=== PATIENT | male | born 1975 | race Caucasian/White ===

== ENCOUNTER 2016-10-24 11:39 | Emergency (ER) | payer BC ==
[~2016-10-24] VITALS: Ht 198.1 cm; Wt 90.0 kg
[~2016-10-24 11:39] MED LIST: ALPR0.5T3 PO; BUPR100T4 PO; EXTR500C PO; FERR325T PO; VITA50TA PO
[2016-10-24 11:45] VITALS: BP 143/74; PULSE 84; RESP 16; TEMP 98.2; O2SAT 98
--- NOTE | 2016-10-24 11:47 | PD ---
Physical Exam Date Seen by Provider: October 24, 2016 Time Seen by Provider: 11:45 Narrative 41 y/o male here with injury to Right lower lateral rib cage while wrestling with a friend 4 days ago. Patient having 9/10 pain and pain with deep breaths and movements. Pain is feeling worse despite tylenol. No fever or chills. No SOB. V/S Stable Awaiting Bed Placement. [facility] Medical Record Reviewed: Yes Supervised Visit with PAULA: Yes Condition: Stable Jonathan Ruiz October 24, 2016 11:47
--- NOTE | 2016-10-24 12:20 | PD ---
HPI Chief Complaint: Fall Travel History International Travel<30 days: Yes Contact w/Intl Traveler<30days: Yes Name of Country Traveled to: [place] Traveled to known affect area: No History of Present Illness HPI 41-year-old male presents to the emergency department with right upper quadrant pain and right rib pain for 4 days. Patient reports he was wrestling with his friend when he fell backwards onto the ground and his friend landed onto his abdomen. He reports the right upper quadrant pain has become increasingly more painful and associated with nausea no vomiting. PFSH Past Medical History Anemia: Yes Arthritis: Yes Depression: Yes Heart Rhythm Problems: Yes (LOWER) Cardiovascular Problems: Yes (ABLATION 2008) Gastrointestinal Disorders: Yes (GASTRIC BYPASS, HX ULCERS) Musculoskeletal: Yes (SHOULDER, ARTHRITIS, NECK AND BACK) Neurologic: Yes (HEAD INJURY, BUT CT SCAN NEG PER PT) Pancreatitis: Yes Ulcer: Yes Past Surgical History Abdominal Surgery: Yes (Gastric bypass) AICD: No Body Medical Devices: HARDWARE IN NECK, LOWER AND RIGHT SHOULDER Cardiac Surgery: Yes (Ablation for SVT) Cholecystectomy: Yes Genitourinary Surgery: No Gynecologic Surgery: No Joint Replacement: No Neurologic Surgery: No Oral Surgery: No Pacemaker: No Thoracic Surgery: No Tonsillectomy: Yes Other Surgery: Yes (gastric bypass) Social History Alcohol Use: Yes (Socially) Tobacco Use: Yes (1 pack per 3 days) Substance Use: No Allergies-Medications (Allergen,Severity, Reaction): Coded Allergies: Nonsteroidal Anti-Inflammatory Agts (Verified Allergy, Severe, GASTRIC ULCERS, 08/03/16) Nubain (Verified Allergy, Severe, ITCHING, 08/03/16) *MDRO Multi-Drug Resistant Organism (Verified Adverse Reaction, Unknown, ) 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; (shoulder) - 01/02/16,01/27/16 & 03/04/16 Reported Meds & Prescriptions Reported Meds & Active Scripts Active Alprazolam 0.5 Mg Tab 0.5 Mg PO BID PRN Acetaminophen Extra Strength (Acetaminophen) 500 Mg Cap 1,000 Mg PO Q6H PRN Bupropion HCl 100 Mg Tab 100 Mg PO BID Increase to TID after 3 days Ferrous Sulfate 325 Mg Tab 325 Mg PO DAILY Reported Vitamin B-1 (Thiamine HCl) 50 Mg Tab 50 Mg PO DAILY Review of Systems Except as stated in HPI: all other systems reviewed are Neg Gastrointestinal: Positive: Nausea, Abdominal Pain Physical Exam Narrative GENERAL: Well-nourished, well-developed patient. Patient appears uncomfortable , holding right side of abdomen. SKIN: Focused skin assessment warm/dry. HEAD: Normocephalic. EYES: No scleral icterus. No injection or drainage. NECK: Supple, trachea midline. No JVD or lymphadenopathy. CARDIOVASCULAR: Regular rate and rhythm without murmurs, gallops, or rubs. RESPIRATORY: Breath sounds equal bilaterally. No accessory muscle use. Right anterior ribs tender to palpation. No crepitus or palpable fx. GASTROINTESTINAL: Abdomen soft, nondistended, acutely tender to palpation in RUQ. MUSCULOSKELETAL: No cyanosis, or edema. BACK: Nontender without obvious deformity. No CVA tenderness. Data Data Last Documented VS Vital Signs Date Time Temp Pulse Resp B/P Pulse Ox O2 Delivery O2 Flow Rate FiO2 10/24/16 11:45 98.2 84 16 143/74 98 MDM Condition: Stable Vanesa Okeefe October 24, 2016 12:20
[2016-10-24] MEDS ORDERED: SODIUM CHLOR 0.9% 1000 ML INJ 1,000 ML IV ONE (12:45)
[2016-10-24] MEDS ORDERED: HYDROmorphone HCL PF 1 MG/ML VIAL IVS ONE (12:45)
--- NOTE | 2016-10-24 14:04 | PD ---
HPI Chief Complaint: Fall Time Seen by Provider: 12:32 Travel History International Travel<30 days: Yes Contact w/Intl Traveler<30days: Yes Name of Country Traveled to: [place] Traveled to known affect area: No History of Present Illness HPI Is a 41-year-old man who presents emergency department when of right flank right upper quadrant abdominal pain. He states presents with 3 days ago he was horsing around and he fell to ground one of his buddies fell with her knee onto his right flank. Since that time he said worsening right flank pain and right upper quadrant abdominal pain. It is worse with deep breathing. He has some shortness of breath with it. He's had multiple muscular skeletal surgeries in the past and is on chronic opiates. He otherwise had been feeling well. 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 SKIN: Focused skin assessment warm/dry. HEAD: Atraumatic. Normocephalic. CARDIOVASCULAR: Regular rate and rhythm. No murmur appreciated. RESPIRATORY: No accessory muscle use. Clear to auscultation. Breath sounds equal bilaterally. GASTROINTESTINAL: Abdomen soft. There is redundant skin post bypass. He has significant right upper quadrant tenderness. He is a little bit of right lower quadrant tenderness as well. No peritonitis. MUSCULOSKELETAL: No obvious deformities. Is significant right flank tenderness right costal margin tenderness. Data Data Last Documented VS Vital Signs Date Time Temp Pulse Resp B/P Pulse Ox O2 Delivery O2 Flow Rate FiO2 10/24/16 14:53 72 16 121/63 96 Room Air 10/24/16 11:45 98.2 Orders Chest, Single Ap (10/24/16 ) Ct Abd/Pel W Iv Contrast(Rout) (10/24/16 ) Iv Access Insert/Monitor (10/24/16 12:41) Sodium Chlor 0.9% 1000 Ml Inj (Ns 1000 M (10/24/16 12:45) Hydromorphone Pf Inj (Dilaudid Pf Inj) (10/24/16 12:45) Iohexol 350 Inj (Omnipaque 350 Inj) (10/24/16 14:30) MDM Medical Decision Making Medical Screen Exam Complete: Yes Emergency Medical Condition: Yes Interpretation(s) Chest x-ray negative CT abdomen and pelvis: Negative Differential Diagnosis Rib fracture, pneumothorax, liver injury, other Narrative Course Medical decision making This a 41-year-old man who presents to the emergency department with right upper quadrant abdominal pain after taking a really hard need to the right costal margin. He likely has rib fractures. He has more right upper quadrant abdominal pain than expected for this including right lower quadrant abdominal pain as well. We'll check CT to ensure no liver injury. Outpatient follow-up. Diagnosis Primary Impression: Chest wall contusion Additional Instructions: Follow-up with her primary doctor if not well in the next 3-5 days. Return to the emergency department for any new or worsening symptoms. Med/Other Pt SpecificInfo: No Change to Meds Disposition: 01 DISCHARGE HOME Condition: Stable Jarrett Johansen MD October 24, 2016 14:04
--- NOTE | 2016-10-24 14:19 | RADRPT ---
EXAM DATE/TIME: 10/24/2016 12:43 [facility] COMPARISON: CHEST SINGLE AP, May 31, 2016, 6:39. INDICATIONS : Fell this morning and injured right lower chest and ribs, short of breath MEDICAL HISTORY : fractured clavicle SURGICAL HISTORY : cervical fusion, ORIF right clavicle, removal of hardware right clavicle ENCOUNTER: Initial ACUITY: 1 day PAIN SCORE: 8/10 LOCATION: Right chest FINDINGS: Portable AP view of the chest demonstrates a normal-sized cardiac silhouette. No effusion, consolidat ion, or pneumothorax is visualized. The bones and soft tissues demonstrate no acute abnormality. CONCLUSION: No acute cardiopulmonary abnormality is identified. Harry Jolly MD on October 24, 2016 at 14:17 Board Certified Radiologist. This report was verified electronically.
[2016-10-24] MEDS ORDERED: IOHEXOL 350 MG/ML 10 ML VIAL (for RAD DIAG) IV ONE (14:30)
--- NOTE | 2016-10-24 14:51 | RADRPT ---
EXAM DATE/TIME: 10/24/2016 14:21 [facility] COMPARISON: No previous studies available for comparison. INDICATIONS : Fall now having right rib pain on inspiration. IV CONTRAST: 96 cc Omnipaque 350 (iohexol) IV ORAL CONTRAST: No oral contrast ingested. RADIATION DOSE: 8.46 CTDIvol (mGy) MEDICAL HISTORY : Cardiovascular disease. Pancreatitis. SURGICAL HISTORY : Gastric bypass. Cholecystectomy. ENCOUNTER: Initial ACUITY: 4 - 6 days PAIN SCALE: 9/10 LOCATION: Right Abdomen TECHNIQUE: Volumetric scanning of the abdomen and pelvis was performed. Using automated exposure control and ad justment of the mA and/or kV according to patient size, radiation dose was kept as low as reasonably achievable to obtain optimal diagnostic quality images. FINDINGS: LOWER LUNGS: The visualized lower lungs are clear. LIVER: Homogeneous density without lesion. There is no dilation of the biliary tree. Status post cholecyste ctomy. SPLEEN: Normal size without lesion. PANCREAS: Within normal limits. KIDNEYS: Normal in size and shape. There is no mass, stone or hydronephrosis. ADRENAL GLANDS: Within normal limits. VASCULAR: There is no aortic aneurysm. BOWEL/MESENTERY: Postsurgical changes are noted involving the stomach with multiple surgical clips and anette. There are several loops of nondilated air-containing small bowel with several small air-fluid levels. There is no free intraperitoneal air or fluid. No oral contrast was given limiting the sensitivity of the exam. ABDOMINAL WALL: Within normal limits. RETROPERITONEUM: There is no lymphadenopathy. BLADDER: No wall thickening or mass. REPRODUCTIVE: Within normal limits. INGUINAL: There is no lymphadenopathy or hernia. MUSCULOSKELETAL: Within normal limits for patient age. CONCLUSION: 1. Negative acute trauma study with no evidence of visceral injury. The lung bases are clear. 2. Status post cholecystectomy. 3. Postsurgical changes status post gastric surgery. There is a mildly nonspecific, nonobstructive b owel gas pattern. Sunny Cody MD on October 24, 2016 at 14:47 Board Certified Radiologist. This report was verified electronically.
[2016-10-24 14:53] VITALS: BP 121/63; PULSE 72; RESP 16; O2SAT 96
[2016-10-25] MEDS ORDERED: TEMA7.5C9 PO (15:42)
[2016-10-26] MEDS ORDERED: TEMA7.5C9 PO (11:50)
[2016-11-28] MEDS ORDERED: TEMA7.5C9 PO (11:20)
[2016-11-28] MEDS ORDERED: BUPR100T4 PO (11:20)
[2016-11-28] MEDS ORDERED: TEMA7.5C PO (11:21)
== END 2016-10-24 15:48 | disposition home or self-care (01) ==
LOC: NEPD 11:39
DX: S20.211A Contusion of right front wall of thorax, initial encounter (principal); R11.0 Nausea; W03.XXXA Other fall on same level due to collision with another person, initial encounter; Y93.83 Activity, rough housing and horseplay; Z72.0 Tobacco use; Z86.2 Personal history of diseases of the blood and blood-forming organs and certain disorders involving the immune mechanism; Z87.39 Personal history of other diseases of the musculoskeletal system and connective tissue; Z86.59 Personal history of other mental and behavioral disorders; Z86.79 Personal history of other diseases of the circulatory system; Z87.19 Personal history of other diseases of the digestive system; Z86.69 Personal history of other diseases of the nervous system and sense organs
CPT/HCPCS: 71010; 74177; 96360; 96361; 99285; J1170; J7030; Q9967

== ENCOUNTER 2017-02-01 03:54 | Emergency (ER) | payer BC ==
[~2017-02-01] VITALS: Ht 198.1 cm; Wt 90.5 kg
[~2017-02-01 03:54] MED LIST changes: -ALPR0.5T3 PO; -EXTR500C PO; +HYDR-3534 PO; +TEMA7.5C PO
[2017-02-01 03:56] VITALS: BP 147/79; PULSE 71; RESP 15; TEMP 98; O2SAT 100
[2017-02-01] MEDS ORDERED: TEMA7.5C9 PO (04:12)
[2017-02-01] MEDS ORDERED: SODIUM CHLORIDE 0.9% FLUSH 10 ML FLUSH IV FLUSH PRN (04:30)
[2017-02-01] MEDS ORDERED: MORPHINE SULFATE 4 MG/ML INJ IV PUSH ONE ×2 (04:30→06:15)
[2017-02-01] MEDS ORDERED: SODIUM CHLOR 0.9% 1000 ML INJ 1,000 ML IV ONE (04:45)
[2017-02-01] MEDS ORDERED: ONDANSETRON HCL 4 MG/2 ML VIAL IV PUSH ONE (04:45)
--- NOTE | 2017-02-01 04:45 | PD ---
HPI Chief Complaint: Flank/Kidney Pain Time Seen by Provider: 04:15 Travel History International Travel<30 days: No Contact w/Intl Traveler<30days: No Traveled to known affect area: No History of Present Illness HPI 41yo M with PMH of nephrolithiasis, chronic back pain, obesity s/p gastric bypass presents to the ED with c/o right flank pain for 3 days. States it radiates from right flank to right back. Associated with nausea, dysuria. Pain is intermittent. Denies any fever, chest pain, sob, vomiting, hematuria, testicular pain, penile discharge. PFSH Past Medical History Anemia: Yes Arthritis: Yes Depression: Yes Heart Rhythm Problems: Yes (LOWER) Cardiovascular Problems: Yes (Ablation 2009) Diminished Hearing: No Gastrointestinal Disorders: Yes (GASTRIC BYPASS, HX ULCERS) Musculoskeletal: Yes (SHOULDER, ARTHRITIS, NECK AND BACK) Neurologic: Yes (HEAD INJURY, BUT CT SCAN NEG PER PT) Pancreatitis: Yes Ulcer: Yes Tetanus Vaccination: < 5 Years Influenza Vaccination: Yes Past Surgical History Abdominal Surgery: Yes (Gastric bypass) AICD: No Body Medical Devices: HARDWARE IN NECK, LOWER AND RIGHT SHOULDER Cardiac Surgery: Yes (Ablation for SVT) Cholecystectomy: Yes Genitourinary Surgery: No Gynecologic Surgery: No Joint Replacement: No Neurologic Surgery: No Oral Surgery: No Pacemaker: No Thoracic Surgery: No Tonsillectomy: Yes Other Surgery: Yes (gastric bypass) Social History Alcohol Use: Yes (once a week) Tobacco Use: Yes (1 PPD) Substance Use: No Allergies-Medications (Allergen,Severity, Reaction): Coded Allergies: diclofenac (Unverified Allergy, Severe, GASTRIC ULCERS, 01/17/17) etodolac (Unverified Allergy, Severe, GASTRIC ULCERS, 01/17/17) flurbiprofen (Unverified Allergy, Severe, GASTRIC ULCERS, 01/17/17) ibuprofen (Unverified Allergy, Severe, GASTRIC ULCERS, 01/17/17) indomethacin (Unverified Allergy, Severe, GASTRIC ULCERS, 01/17/17) ketoprofen (Unverified Allergy, Severe, GASTRIC ULCERS, 01/17/17) ketorolac (Unverified Allergy, Severe, GASTRIC ULCERS, 01/17/17) nalbuphine (Unverified Allergy, Severe, ITCHING, 01/17/17) naproxen (Unverified Allergy, Severe, GASTRIC ULCERS, 01/17/17) oxaprozin (Unverified Allergy, Severe, GASTRIC ULCERS, 01/17/17) *MDRO Multi-Drug Resistant Organism (Verified Adverse Reaction, Unknown, ) 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 SKIN: Focused skin assessment warm/dry. HEAD: Atraumatic. Normocephalic. EYES: Pupils equal and round. No scleral icterus. No injection or drainage. ENT: No nasal bleeding or discharge. Mucous membranes pink and moist. NECK: Trachea midline. No JVD. CARDIOVASCULAR: Regular rate and rhythm. No murmur appreciated. RESPIRATORY: No accessory muscle use. Clear to auscultation. Breath sounds equal bilaterally. GASTROINTESTINAL: Abdomen soft, +TTP RUQ, right flank. No rebound tenderness or guarding. BACK: +Right CVA ttp. MUSCULOSKELETAL: No obvious deformities. No clubbing. No cyanosis. No edema. NEUROLOGICAL: Awake and alert. No obvious cranial nerve deficits. Motor grossly within normal limits. Normal speech. PSYCHIATRIC: Appropriate mood and affect; insight and judgment normal. Data Data Last Documented VS Vital Signs Date Time Temp Pulse Resp B/P (MAP) Pulse Ox O2 Delivery O2 Flow Rate FiO2 02/01/17 05:46 16 02/01/17 04:59 50 124/78 (93) 100 Room Air 02/01/17 03:56 98.0 Orders Orders Complete Blood Count With Diff (02/01/17 04:30) Comprehensive Metabolic Panel (02/01/17 04:30) Lipase (02/01/17 04:30) Urinalysis - C+S If Indicated (02/01/17 04:30) Ct Abd/Pel W/O Iv Contrast (02/01/17 04:30) Iv Access Insert/Monitor (02/01/17 04:30) Ecg Monitoring (02/01/17 04:30) Oximetry (02/01/17 04:30) Sodium Chloride 0.9% Flush (Ns Flush) (02/01/17 04:30) Morphine Inj (Morphine Inj) (02/01/17 04:30) Ondansetron Inj (Zofran Inj) (02/01/17 04:45) Sodium Chlor 0.9% 1000 Ml Inj (Ns 1000 M (02/01/17 04:45) Morphine Inj (Morphine Inj) (02/01/17 06:15) Labs Laboratory Tests Test 02/01/17 04:40 02/01/17 04:51 Urine Color YELLOW Urine Turbidity CLEAR Urine pH 6.0 Urine Specific [place] 1.022 Urine Protein TRACE mg/dL Urine Glucose (UA) NEG mg/dL Urine Ketones NEG mg/dL Urine Occult Blood NEG Urine Nitrite NEG Urine Bilirubin NEG Urine Urobilinogen LESS THAN 2.0 MG/DL Urine Leukocyte Esterase TRACE Urine RBC 3 /hpf Urine WBC 3 /hpf Urine Squamous Epithelial Cells 2 /hpf Urine Mucus FEW /lpf Microscopic Urinalysis Comment CULT NOT INDICATED White Blood Count 2.8 TH/MM3 Red Blood Count 4.85 MIL/MM3 Hemoglobin 10.9 GM/DL Hematocrit 35.9 % Mean Corpuscular Volume 74.0 FL Mean Corpuscular Hemoglobin 22.6 PG Mean Corpuscular Hemoglobin Concent 30.5 % Red Cell Distribution Width 19.3 % Platelet Count 250 TH/MM3 Mean Platelet Volume 7.0 FL Neutrophils (%) (Auto) 43.7 % Lymphocytes (%) (Auto) 41.2 % Monocytes (%) (Auto) 9.7 % Eosinophils (%) (Auto) 4.7 % Basophils (%) (Auto) 0.7 % Neutrophils # (Auto) 1.2 TH/MM3 Lymphocytes # (Auto) 1.2 TH/MM3 Monocytes # (Auto) 0.3 TH/MM3 Eosinophils # (Auto) 0.1 TH/MM3 Basophils # (Auto) 0.0 TH/MM3 CBC Comment DIFF FINAL Differential Comment Blood Urea Nitrogen 9 MG/DL Creatinine 0.84 MG/DL Random Glucose 91 MG/DL Total Protein 6.9 GM/DL Albumin 3.6 GM/DL Calcium Level 8.5 MG/DL Alkaline Phosphatase 61 U/L Aspartate Amino Transf (AST/SGOT) 17 U/L Alanine Aminotransferase (ALT/SGPT) 21 U/L Total Bilirubin 0.5 MG/DL Sodium Level 143 MEQ/L Potassium Level 4.1 MEQ/L Chloride Level 108 MEQ/L Carbon Dioxide Level 28.5 MEQ/L Anion Gap 7 MEQ/L Estimat Glomerular Filtration Rate 101 ML/MIN Lipase 223 U/L MDM Medical Decision Making Medical Screen Exam Complete: Yes Emergency Medical Condition: Yes Differential Diagnosis Nephrolithiasis vs. pyelonephritis vs. colitis vs. cholecystitis Narrative Course 41yo M with right flank pain for 3 days. Denies any fever, vomiting. Labs reviewed, WBC is low at 2.8. Pt has had that before and WBC was 3.1 on . H/H is low but at baseline. Lipase normal. UA negative with WBC 3. CTa/ p showed stable noncontrast CT of the abdomen and pelvis. No acute finding is identified. Pt given zofran and morphine with improvement of pain. Pt tolerating PO. Return precautions given. Diagnosis Primary Impression: Abdominal pain Qualified Codes: R10.9 - Unspecified abdominal pain Patient Instructions: General Instructions Departure Forms: Tests/Procedures Additional Instructions: Please follow up with your primary care physician regarding low WBC of 2.8. Return to the ED if symptoms worsen. Med/Other Pt SpecificInfo: Prescription(s) given Scripts Acetaminophen (Tylenol) 325 Mg Tab 650 MG PO Q6H Y for PAIN SCALE 1 TO 4, #20 TAB 0 Refills Prov: Irene Day 02/01/17 Disposition: 01 DISCHARGE HOME Condition: Stable Irene Day DO Feb 01, 2017 04:44
[2017-02-01 04:59] VITALS: BP 124/78; PULSE 50; RESP 16; O2SAT 100
[2017-02-01 05:12] LABS: AUTOMATED NEUTROPHIL # 1.2 TH/MM3 (1.8-7.7); BASOPHIL % 0.7 % (0.0-2.0); EOSINOPHIL # 0.1 TH/MM3 (0-0.4); EOSINOPHIL % 4.7 % (0.0-4.0); HEMATOCRIT 35.9 % (39.0-51.0); HEMO FLAGS DIFF FINAL; LYMPH % 41.2 % (9.0-44.0); LYMPHOCYTE # 1.2 TH/MM3 (1.0-4.8); MEAN CORPUSCULAR HEMOGLOBIN 22.6 PG (27.0-34.0); MEAN CORPUSCULAR HGB CONC 30.5 % (32.0-36.0); MONO % 9.7 % (0.0-8.0); NEUT % 43.7 % (16.0-70.0); PLATELET COUNT 250 TH/MM3 (150-450); RED BLOOD COUNT 4.85 MIL/MM3 (4.50-5.90); RED CELL DISTRIBUTION WIDTH 19.3 % (11.6-17.2); WHITE BLOOD COUNT 2.8 TH/MM3 (4.0-11.0)
--- NOTE | 2017-02-01 05:20 | RADRPT ---
EXAM DATE/TIME: 02/01/2017 04:42 [facility] COMPARISON: CT ABDOMEN & PELVIS W/O CONTRAST, November 24, 2014, 16:47. INDICATIONS : Right flank pain and dysuria. ORAL CONTRAST: No oral contrast ingested. RADIATION DOSE: 7.18 CTDIvol (mGy) MEDICAL HISTORY : Renal calculi. Pancreatitis. SURGICAL HISTORY : Cholecystectomy. Gastric bypass. Fusion, lumbar. ENCOUNTER: Initial ACUITY: 2 days PAIN SCALE: 8/10 LOCATION: Right flank TECHNIQUE: Volumetric scanning of the abdomen and pelvis was performed. Using automated exposure control and ad justment of the mA and/or kV according to patient size, radiation dose was kept as low as reasonably achievable to obtain optimal diagnostic quality images. DICOM format image data is available electro nically for review and comparison. FINDINGS: LOWER LUNGS: The visualized lower lungs are clear. LIVER: Homogeneous density without lesion. There is no dilation of the biliary tree. There has been prior cholecystectomy. SPLEEN: Normal size without lesion. PANCREAS: Within normal limits. KIDNEYS: Normal in size and shape. There is no mass, stone, or hydronephrosis. ADRENAL GLANDS: Within normal limits. VASCULAR: There is no aortic aneurysm. BOWEL/MESENTERY: The stomach, small bowel, and colon demonstrate no acute abnormality. There is no free intraperitone al air or fluid. Postsurgical changes are present related to prior gastric bypass surgery. Bowel stap le lines are present. ABDOMINAL WALL: Within normal limits. RETROPERITONEUM: There is no lymphadenopathy. BLADDER: No wall thickening or mass. REPRODUCTIVE: Within normal limits. INGUINAL: There is no lymphadenopathy or hernia. MUSCULOSKELETAL: There is posterior lumbar spine hardware. No acute osseous abnormality is identified. CONCLUSION: Stable noncontrast CT of the abdomen and pelvis. No acute finding is identified. Harry Jolly MD on February 01, 2017 at 5:16 Board Certified Radiologist. This report was verified electronically.
[2017-02-01 05:24] LABS: ALT (GPT) 21 U/L (12-78); ANION GAP 7 MEQ/L (5-15); AST (GOT) 17 U/L (15-37); BICARBONATE 28.5 MEQ/L (21.0-32.0); BLOOD UREA NITROGEN 9 MG/DL (7-18); CHLORIDE 108 MEQ/L (98-107); GLOMERULAR FILTRATION RATE 101 ML/MIN (>89); POTASSIUM 4.1 MEQ/L (3.5-5.1); SODIUM (NA) 143 MEQ/L (136-145)
[2017-02-01 05:26] LABS: ALKALINE PHOSPHATASE 61 U/L (45-117); TOTAL BILIRUBIN ADULT 0.5 MG/DL (0.2-1.0)
[2017-02-01 05:34] LABS: BLOOD, URINE NEG (NEG); COMMENT (UR) CULT NOT INDICATED; CULTURE IF INDICATED CULT NOT INDICATED; GLUCOSE,URINE NEG (NEG); KETONE, URINE NEG (NEG); MUCUS URINE FEW /lpf (OCC); NITRITE,URINE NEG (NEG); SQUAMOUS EPITHELIAL CELL URINE 2 /hpf (0-5); URINE COLOR YELLOW (YELLW/STRAW)
[2017-02-01 05:46] VITALS: RESP 16
[2017-02-01] MEDS ORDERED: TYLE325T PO (06:32)
[2017-02-02] MEDS ORDERED: PANT40TA3 PO (15:59)
[2017-02-02] MEDS ORDERED: CARA1SUS3 PO (16:10)
== END 2017-02-01 06:45 | disposition home or self-care (01) ==
LOC: NEPC 03:54
DX: R10.9 Unspecified abdominal pain (principal); E66.9 Obesity, unspecified; D64.9 Anemia, unspecified; M13.80 Other specified arthritis, unspecified site; F32.9 Major depressive disorder, single episode, unspecified; K85.90 Acute pancreatitis without necrosis or infection, unspecified; F17.200 Nicotine dependence, unspecified, uncomplicated; Z79.899 Other long term (current) drug therapy
CPT/HCPCS: 74176; 80053; 81001; 83690; 85025; 96361; 96374; 96375; 96376; 99285; J2270; J2405; J7030

== ENCOUNTER 2017-02-15 06:17 | Emergency (ER) | payer BC ==
[~2017-02-15] VITALS: Ht 198.1 cm; Wt 90.0 kg
[~2017-02-15 06:17] MED LIST changes: -BUPR100T4 PO; +CARA1SUS3 PO; -FERR325T PO; +PANT40TA3 PO; -TEMA7.5C PO; +TEMA7.5C9 PO; +TYLE325T PO; -VITA50TA PO
[2017-02-15 06:19] VITALS: BP 116/71; PULSE 71; RESP 16; TEMP 98.4; O2SAT 100
[2017-02-15 07:40] VITALS: BP 120/76; PULSE 74; RESP 16; TEMP 97.8; O2SAT 99
--- NOTE | 2017-02-15 07:43 | PD ---
HPI Chief Complaint: Flank/Kidney Pain Time Seen by Provider: 07:24 Travel History International Travel<30 days: No Contact w/Intl Traveler<30days: No Traveled to known affect area: No History of Present Illness HPI 41 y/o male presents with one-day history of diffuse abdominal pain and burning when he urinates. He states he's had prior history of kidney stones. He states he was here at the end of January he followed with his primary care physician and they put him on Protonix and Carafate and that helped his pain but now it is not helping. He states he has no other symptoms. Quality pain is sharp. Severity severe per patient. He denies specific modifying factors. He denies migration of the pain. PFSH Past Medical History Anemia: Yes Arthritis: Yes Depression: Yes Heart Rhythm Problems: Yes (LOWER) Cardiovascular Problems: Yes (Ablation 2009) Diminished Hearing: No Gastrointestinal Disorders: Yes (GASTRIC BYPASS, HX ULCERS) Musculoskeletal: Yes (SHOULDER, ARTHRITIS, NECK AND BACK) Psychiatric: Yes Pancreatitis: Yes Ulcer: Yes Tetanus Vaccination: < 5 Years Influenza Vaccination: Yes Past Surgical History Abdominal Surgery: Yes (Gastric bypass) AICD: No Body Medical Devices: HARDWARE IN NECK, LOWER AND RIGHT SHOULDER Cardiac Surgery: Yes (Ablation for SVT) Cholecystectomy: Yes Genitourinary Surgery: No Gynecologic Surgery: No Neurologic Surgery: No Oral Surgery: No Pacemaker: No Thoracic Surgery: No Tonsillectomy: Yes Other Surgery: Yes (gastric bypass) Social History Alcohol Use: Yes (once a week) Tobacco Use: Yes (1 PPD) Substance Use: No (pt denies) Allergies-Medications (Allergen,Severity, Reaction): Coded Allergies: diclofenac (Verified Adverse Reaction, Severe, GASTRIC ULCERS, 02/15/17) etodolac (Verified Adverse Reaction, Severe, GASTRIC ULCERS, 02/15/17) flurbiprofen (Verified Adverse Reaction, Severe, GASTRIC ULCERS, 02/15/17) ibuprofen (Verified Adverse Reaction, Severe, GASTRIC ULCERS, 02/15/17) indomethacin (Verified Adverse Reaction, Severe, GASTRIC ULCERS, 02/15/17) ketoprofen (Verified Adverse Reaction, Severe, GASTRIC ULCERS, 02/15/17) nalbuphine (Verified Adverse Reaction, Severe, ITCHING, 02/15/17) naproxen (Verified Adverse Reaction, Severe, GASTRIC ULCERS, 02/15/17) oxaprozin (Verified Adverse Reaction, Severe, GASTRIC ULCERS, 02/15/17) *MDRO Multi-Drug Resistant Organism (Verified Adverse Reaction, Unknown, ) 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 SKIN: Warm and dry. HEAD: Normocephalic and atraumatic. EYES: No injection or drainage. ENT: No nasal drainage noted. NECK: Supple, trachea midline. CARDIOVASCULAR: Regular rate and rhythm RESPIRATORY: No accessory muscle use. GASTROINTESTINAL: Abdomen soft, diffusely ttp, nondistended. EXTREMITIES: No edema. BACK: Nontender without obvious deformity. NEUROLOGICAL: Awake and alert. Motor and sensory grossly within normal limits. Normal speech. Data Data Last Documented VS Vital Signs Date Time Temp Pulse Resp B/P (MAP) Pulse Ox O2 Delivery O2 Flow Rate FiO2 02/15/17 09:08 97.8 78 16 110/78 (89) 99 02/15/17 07:40 Room Air Orders Orders Complete Blood Count With Diff (02/15/17 07:31) Comprehensive Metabolic Panel (02/15/17 07:31) Ua Includes Microscopic (02/15/17 07:31) Ct Abd/Pel W/O Iv Contrast (02/15/17 07:31) Iv Access Insert/Monitor (02/15/17 07:31) Ketorolac Inj (Toradol Inj) (02/15/17 07:45) Ondansetron Inj (Zofran Inj) (02/15/17 07:45) Sodium Chloride 0.9% Flush (Ns Flush) (02/15/17 07:45) Sodium Chlor 0.9% 1000 Ml Inj (Ns 1000 M (02/15/17 07:45) Lipase (02/15/17 07:31) Labs Laboratory Tests Test 02/15/17 07:35 White Blood Count 4.0 TH/MM3 Red Blood Count 5.11 MIL/MM3 Hemoglobin 12.1 GM/DL Hematocrit 38.4 % Mean Corpuscular Volume 75.2 FL Mean Corpuscular Hemoglobin 23.7 PG Mean Corpuscular Hemoglobin Concent 31.6 % Red Cell Distribution Width 19.3 % Platelet Count 259 TH/MM3 Mean Platelet Volume 7.4 FL Neutrophils (%) (Auto) 57.0 % Lymphocytes (%) (Auto) 33.2 % Monocytes (%) (Auto) 8.0 % Eosinophils (%) (Auto) 1.2 % Basophils (%) (Auto) 0.6 % Neutrophils # (Auto) 2.3 TH/MM3 Lymphocytes # (Auto) 1.3 TH/MM3 Monocytes # (Auto) 0.3 TH/MM3 Eosinophils # (Auto) 0.0 TH/MM3 Basophils # (Auto) 0.0 TH/MM3 CBC Comment DIFF FINAL Differential Comment Urine Color LIGHT-YELLOW Urine Turbidity CLEAR Urine pH 6.5 Urine Specific [place] 1.006 Urine Protein NEG mg/dL Urine Glucose (UA) NEG mg/dL Urine Ketones NEG mg/dL Urine Occult Blood NEG Urine Nitrite NEG Urine Bilirubin NEG Urine Urobilinogen LESS THAN 2.0 MG/DL Urine Leukocyte Esterase NEG Urine RBC LESS THAN 1 /hpf Urine WBC 1 /hpf Urine Squamous Epithelial Cells <1 /hpf Blood Urea Nitrogen 7 MG/DL Creatinine 0.98 MG/DL Random Glucose 93 MG/DL Total Protein 7.9 GM/DL Albumin 4.1 GM/DL Calcium Level 8.6 MG/DL Alkaline Phosphatase 58 U/L Aspartate Amino Transf (AST/SGOT) 20 U/L Alanine Aminotransferase (ALT/SGPT) 19 U/L Total Bilirubin 0.3 MG/DL Sodium Level 144 MEQ/L Potassium Level 3.5 MEQ/L Chloride Level 108 MEQ/L Carbon Dioxide Level 26.8 MEQ/L Anion Gap 9 MEQ/L Estimat Glomerular Filtration Rate 85 ML/MIN Lipase 251 U/L [facility] Medical Decision Making Medical Screen Exam Complete: Yes Emergency Medical Condition: Yes Medical Record Reviewed: Yes (pmh confirmed) Interpretation(s) CBC & BMP Diagram 02/15/17 07:35 Total Protein 7.9, Albumin 4.1, Calcium Level 8.6, Alkaline Phosphatase 58, Aspartate Amino Transf (AST/SGOT) 20, Alanine Aminotransferase (ALT/SGPT) 19, Total Bilirubin 0.3 Last 24 hours Impressions Abdomen/Pelvis CT 02/15/17 0731 Signed Impressions: Service Date/Time: Wednesday, February 15, 2017 08:15 - CONCLUSION: 1. No acute intra-abdominal process. 2. No acute obstructive uropathy. Mykel Moya MD Differential Diagnosis Kidney stone, gastritis, musculoskeletal... Narrative Course will check labs, ua, and ct and patient states can have toradol and reeval ED workup no acute,Patient denies any new complaints and states that they are feeling better. Patient happy with care, all questions answered. Patient knows that follow up is incumbent on them and to return to the emergency room immediately if new or worsening symptoms develop. Patient given strict return precautions, vitals reviewed and are normal, agrees to further workup as an outpatient. Diagnosis Primary Impression: Abdominal pain Qualified Codes: R10.84 - Generalized abdominal pain Patient Instructions: General Instructions Additional Instructions: tylenol as needed, follow with primary this week, return as needed Med/Other Pt SpecificInfo: No Change to Meds Disposition: 01 DISCHARGE HOME Condition: Stable Madina Santos MD Feb 15, 2017 07:43
[2017-02-15] MEDS ORDERED: KETOROLAC TROMETHAMINE 30 MG/ML (IVP) VIAL IVP ONE (07:45)
[2017-02-15] MEDS ORDERED: SODIUM CHLOR 0.9% 1000 ML INJ 1,000 ML IV ONE (07:45)
[2017-02-15] MEDS ORDERED: SODIUM CHLORIDE 0.9% FLUSH 10 ML FLUSH IVF PRN (07:45)
[2017-02-15] MEDS ORDERED: ONDANSETRON HCL 4 MG/2 ML VIAL IVP ONE (07:45)
[2017-02-15 07:56] LABS: AUTOMATED NEUTROPHIL # 2.3 TH/MM3 (1.8-7.7); BASOPHIL % 0.6 % (0.0-2.0); EOSINOPHIL % 1.2 % (0.0-4.0); HEMATOCRIT 38.4 % (39.0-51.0); HEMO FLAGS DIFF FINAL; LYMPH % 33.2 % (9.0-44.0); LYMPHOCYTE # 1.3 TH/MM3 (1.0-4.8); MEAN CELL VOLUME 75.2 FL (80.0-100.0); MEAN CORPUSCULAR HEMOGLOBIN 23.7 PG (27.0-34.0); MEAN CORPUSCULAR HGB CONC 31.6 % (32.0-36.0); PLATELET COUNT 259 TH/MM3 (150-450); RED BLOOD COUNT 5.11 MIL/MM3 (4.50-5.90); RED CELL DISTRIBUTION WIDTH 19.3 % (11.6-17.2)
[2017-02-15 07:59] LABS: BLOOD, URINE NEG (NEG); GLUCOSE,URINE NEG (NEG); KETONE, URINE NEG (NEG); NITRITE,URINE NEG (NEG); PH, URINE 6.5 (5.0-8.5); SQUAMOUS EPITHELIAL CELL URINE <1 /hpf (0-5); URINE COLOR LIGHT-YELLOW (YELLW/STRAW)
[2017-02-15 08:13] LABS: ALT (GPT) 19 U/L (12-78); ANION GAP 9 MEQ/L (5-15); AST (GOT) 20 U/L (15-37); BICARBONATE 26.8 MEQ/L (21.0-32.0); BLOOD UREA NITROGEN 7 MG/DL (7-18); CHLORIDE 108 MEQ/L (98-107); GLOMERULAR FILTRATION RATE 85 ML/MIN (>89); POTASSIUM 3.5 MEQ/L (3.5-5.1); SODIUM (NA) 144 MEQ/L (136-145)
[2017-02-15 08:16] LABS: ALKALINE PHOSPHATASE 58 U/L (45-117); TOTAL BILIRUBIN ADULT 0.3 MG/DL (0.2-1.0)
--- NOTE | 2017-02-15 08:37 | RADRPT ---
EXAM DATE/TIME: 02/15/2017 08:15 [facility] COMPARISON: CT ABDOMEN & PELVIS W/O CONTRAST, February 01, 2017, 4:42. INDICATIONS : Left flank pain ORAL CONTRAST: No oral contrast ingested. RADIATION DOSE: 8.14 CTDIvol (mGy) MEDICAL HISTORY : Renal calculi. SURGICAL HISTORY : Gastric bypass. Cholecystectomy. ENCOUNTER: Initial ACUITY: 1 day PAIN SCALE: 6/10 LOCATION: Left flank TECHNIQUE: Volumetric scanning of the abdomen and pelvis was performed. Using automated exposure control and ad justment of the mA and/or kV according to patient size, radiation dose was kept as low as reasonably achievable to obtain optimal diagnostic quality images. DICOM format image data is available electro nically for review and comparison. FINDINGS: LOWER LUNGS: The visualized lower lungs are clear. LIVER: Homogeneous density without lesion. There is no dilation of the biliary tree. Status post cholecyste ctomy. SPLEEN: Normal size without lesion. PANCREAS: Within normal limits. KIDNEYS: Normal in size and shape. There is no mass, stone, or hydronephrosis. ADRENAL GLANDS: Within normal limits. VASCULAR: There is no aortic aneurysm. BOWEL/MESENTERY: The patient is status post gastric bypass surgery. Bowel staple lines are present The small bowel and colon demonstrate no acute abnormality. There is no free intraperitoneal air or fluid. ABDOMINAL WALL: Within normal limits. RETROPERITONEUM: There is no lymphadenopathy. BLADDER: No wall thickening or mass. REPRODUCTIVE: Within normal limits. INGUINAL: There is no lymphadenopathy or hernia. MUSCULOSKELETAL: Within normal limits for patient age. Lower lumbar spine fusion hardware is stable. CONCLUSION: 1. No acute intra-abdominal process. 2. No acute obstructive uropathy. Mykel Moya MD on February 15, 2017 at 8:32 Board Certified Radiologist. This report was verified electronically.
[2017-02-15 08:39] VITALS: RESP 17
[2017-02-15 09:08] VITALS: BP 110/78; TEMP 97.8
[2017-02-15] MEDS ORDERED: HYDR-3534 PO (16:23)
[2017-02-15] MEDS ORDERED: TEMA7.5C9 PO (16:23)
== END 2017-02-15 09:07 | disposition home or self-care (01) ==
LOC: NEPC 06:17
DX: R10.84 Generalized abdominal pain (principal); F17.200 Nicotine dependence, unspecified, uncomplicated
CPT/HCPCS: 74176; 80053; 81001; 83690; 85025; 96361; 96374; 96375; 99285; J1885; J2405; J7030

== ENCOUNTER 2017-06-16 10:42 | Emergency (ER) | payer BC ==
[~2017-06-16] VITALS: Ht 198.1 cm; Wt 97.0 kg
[~2017-06-16 10:42] MED LIST changes: +FERR325C PO; +FIBE625T10 PO; -HYDR-3534 PO; +HYDR-3583 PO; -TYLE325T PO
[2017-06-16 10:45] VITALS: BP 138/78; PULSE 62; RESP 12; TEMP 98.7; O2SAT 99
== END 2017-06-16 14:12 | disposition left against medical advice (07) ==
LOC: NED 10:42
DX: M25.569 Pain in unspecified knee (principal)
CPT/HCPCS: 99281

== ENCOUNTER 2017-07-17 09:02 | Emergency (ER) | payer SELFPAY ==
[~2017-07-17] VITALS: Ht 198.1 cm; Wt 95.0 kg
[2017-07-17 09:05] VITALS: BP 132/64; PULSE 73; RESP 14; TEMP 97; O2SAT 100
[2017-07-17] MEDS ORDERED: SODIUM CHLOR 0.9% 1000 ML INJ 1,000 ML IV SCH (09:50)
[2017-07-17] MEDS ORDERED: ONDANSETRON HCL 4 MG/2 ML VIAL IVP ONE (10:00)
[2017-07-17] MEDS ORDERED: SODIUM CHLORIDE 0.9% FLUSH 10 ML FLUSH IV FLUSH PRN (10:00)
[2017-07-17] MEDS ORDERED: MORPHINE SULFATE 4 MG/ML INJ IV PUSH ONE ×2 (10:00→11:30)
[2017-07-17] MEDS ORDERED: FAMOTIDINE 20 MG/2 ML VIAL IV PUSH ONE (10:00)
--- NOTE | 2017-07-17 10:01 | PD ---
HPI Chief Complaint: Flank/Kidney Pain Time Seen by Provider: 09:50 Travel History International Travel<30 days: No Contact w/Intl Traveler<30days: No Traveled to known affect area: No History of Present Illness HPI The patient is a 42-year-old male who presents to the emergency department for right flank pain. The patient developed right upper quadrant and right upper flank pain last evening at 8 PM. The pain radiates to the back. The pain is sharp, constant, associated with nausea. He denies any vomiting or hematuria, does complain of mild dysuria. He denies any diarrhea or bowel changes. He does have a history of previous gastric bypass, cholecystectomy, and history of peptic ulcer disease. He states he is allergic to nonsteroidal anti-inflammatory secondary to ulcers, did not actually having allergic reaction such as anaphylaxis or hives. He denies any CC fever, chills , or sweats. Symptoms are moderate. There are no current alleviating or exacerbating factors. PFSH Past Medical History Anemia: Yes Arthritis: Yes Depression: Yes Heart Rhythm Problems: Yes (LOWER) Cardiovascular Problems: Yes (Ablation 2009) Diminished Hearing: No Gastrointestinal Disorders: Yes (GASTRIC BYPASS, HX ULCERS) Musculoskeletal: Yes (SHOULDER, ARTHRITIS, NECK AND BACK) Psychiatric: Yes Pancreatitis: Yes Ulcer: Yes Past Surgical History Abdominal Surgery: Yes (Gastric bypass) AICD: No Body Medical Devices: HARDWARE IN NECK, LOWER AND RIGHT SHOULDER Cardiac Surgery: Yes (Ablation for SVT) Cholecystectomy: Yes Genitourinary Surgery: No Gynecologic Surgery: No Neurologic Surgery: No Oral Surgery: No Pacemaker: No Thoracic Surgery: No Tonsillectomy: Yes Other Surgery: Yes (gastric bypass) Social History Alcohol Use: Yes (once a week) Tobacco Use: Yes (1 PPD) Substance Use: No (pt denies) Allergies-Medications (Allergen,Severity, Reaction): Coded Allergies: diclofenac (Verified Adverse Reaction, Severe, GASTRIC ULCERS, 07/17/17) etodolac (Verified Adverse Reaction, Severe, GASTRIC ULCERS, 07/17/17) flurbiprofen (Verified Adverse Reaction, Severe, GASTRIC ULCERS, 07/17/17) ibuprofen (Verified Adverse Reaction, Severe, GASTRIC ULCERS, 07/17/17) indomethacin (Verified Adverse Reaction, Severe, GASTRIC ULCERS, 07/17/17) ketoprofen (Verified Adverse Reaction, Severe, GASTRIC ULCERS, 07/17/17) nalbuphine (Verified Adverse Reaction, Severe, ITCHING, 07/17/17) naproxen (Verified Adverse Reaction, Severe, GASTRIC ULCERS, 07/17/17) oxaprozin (Verified Adverse Reaction, Severe, GASTRIC ULCERS, 07/17/17) *MDRO Multi-Drug Resistant Organism (Verified Adverse Reaction, Unknown, ) 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; (shoulder) - 01/02/16,01/27/16 & 03/04/16 Reported Meds & Prescriptions Reported Meds & Active Scripts Active Restoril (Temazepam) 7.5 Mg Cap 7.5 Mg PO HS PRN Carafate Liq (Sucralfate) 1 Gm/10 Ml Susp 1 Gm PO QID 14 Days on empty stomach Pantoprazole (Pantoprazole Sodium) 40 Mg Tab 40 Mg PO BID Reported Fiber (Calcium Polycarbophil) Unknown Strength Tab Unknown Dose PO PRN Iron (Ferrous Sulfate) Unknown Strength Cap Unknown Dose PO DAILY Hydrocodone-Acetaminophen 10-325 mg Tab 1 Tab PO Q6H PRN Review of Systems Except as stated in HPI: all other systems reviewed are Neg General / Constitutional: No: Fever, Chills Cardiovascular: No: Chest Pain or Discomfort Respiratory: No: Shortness of Breath Gastrointestinal: Positive: Nausea, Abdominal Pain, No: Vomiting, Diarrhea Genitourinary: Positive: Dysuria, Flank Pain, No: Hematuria, Discharge Skin: No Rash Physical Exam Narrative GENERAL: Awake, alert, 42-year-old male who appears his stated age and is in no acute respiratory distress. SKIN: Focused skin assessment warm/dry. HEAD: Atraumatic. Normocephalic. EYES: Pupils equal and round. No scleral icterus. No injection or drainage. ENT: No nasal bleeding or discharge. Mucous membranes pink and moist. NECK: Trachea midline. No JVD. CARDIOVASCULAR: Regular rate and rhythm. No murmur appreciated. RESPIRATORY: No accessory muscle use. Clear to auscultation. Breath sounds equal bilaterally. GASTROINTESTINAL: Abdomen soft, tender palpation right upper quadrant, right flank. No guarding or rigidity. Back: Right CVA tenderness. MUSCULOSKELETAL: No obvious deformities. No clubbing. No cyanosis. No edema. NEUROLOGICAL: Awake and alert. No obvious cranial nerve deficits. Motor grossly within normal limits. Normal speech. PSYCHIATRIC: Appropriate mood and affect; insight and judgment normal. Data Data Last Documented VS Vital Signs Date Time Temp Pulse Resp B/P (MAP) Pulse Ox O2 Delivery O2 Flow Rate FiO2 07/17/17 11:17 18 07/17/17 10:33 100 Room Air 07/17/17 09:05 97.0 73 Orders Orders Complete Blood Count With Diff (07/17/17 09:50) Comprehensive Metabolic Panel (07/17/17 09:50) Lipase (07/17/17 09:50) Urinalysis - C+S If Indicated (07/17/17 09:50) Ct Abd/Pel W/O Iv Contrast (07/17/17 09:50) Iv Access Insert/Monitor (07/17/17 09:50) Ecg Monitoring (07/17/17 09:50) Oximetry (07/17/17 09:50) Morphine Inj (Morphine Inj) (07/17/17 10:00) Ondansetron Inj (Zofran Inj) (07/17/17 10:00) Sodium Chlor 0.9% 1000 Ml Inj (Ns 1000 M (07/17/17 09:50) Sodium Chloride 0.9% Flush (Ns Flush) (07/17/17 10:00) Famotidine Inj (Pepcid Inj) (07/17/17 10:00) Morphine Inj (Morphine Inj) (07/17/17 11:30) Ed Discharge Order (07/17/17 11:44) Labs Laboratory Tests Test 07/17/17 10:00 07/17/17 10:20 Urine Color YELLOW Urine Turbidity CLEAR Urine pH 6.5 Urine Specific [place] 1.008 Urine Protein NEG mg/dL Urine Glucose (UA) NEG mg/dL Urine Ketones NEG mg/dL Urine Occult Blood NEG Urine Nitrite NEG Urine Bilirubin NEG Urine Urobilinogen LESS THAN 2.0 MG/DL Urine Leukocyte Esterase TRACE Urine RBC LESS THAN 1 /hpf Urine WBC 1 /hpf Urine Squamous Epithelial Cells <1 /hpf Urine Mucus FEW /lpf Microscopic Urinalysis Comment CULT NOT INDICATED White Blood Count 3.6 TH/MM3 Red Blood Count 5.11 MIL/MM3 Hemoglobin 11.8 GM/DL Hematocrit 37.5 % Mean Corpuscular Volume 73.3 FL Mean Corpuscular Hemoglobin 23.1 PG Mean Corpuscular Hemoglobin Concent 31.5 % Red Cell Distribution Width 18.2 % Platelet Count 277 TH/MM3 Mean Platelet Volume 6.9 FL Neutrophils (%) (Auto) 64.9 % Lymphocytes (%) (Auto) 25.8 % Monocytes (%) (Auto) 7.2 % Eosinophils (%) (Auto) 1.7 % Basophils (%) (Auto) 0.4 % Neutrophils # (Auto) 2.4 TH/MM3 Lymphocytes # (Auto) 0.9 TH/MM3 Monocytes # (Auto) 0.3 TH/MM3 Eosinophils # (Auto) 0.1 TH/MM3 Basophils # (Auto) 0.0 TH/MM3 CBC Comment DIFF FINAL Differential Comment Blood Urea Nitrogen 6 MG/DL Creatinine 0.87 MG/DL Random Glucose 78 MG/DL Total Protein 7.8 GM/DL Albumin 4.1 GM/DL Calcium Level 8.1 MG/DL Alkaline Phosphatase 65 U/L Aspartate Amino Transf (AST/SGOT) 45 U/L Alanine Aminotransferase (ALT/SGPT) 32 U/L Total Bilirubin 0.2 MG/DL Sodium Level 143 MEQ/L Potassium Level 3.7 MEQ/L Chloride Level 110 MEQ/L Carbon Dioxide Level 26.5 MEQ/L Anion Gap 7 MEQ/L Estimat Glomerular Filtration Rate 97 ML/MIN Lipase 238 U/L [facility] Medical Decision Making Medical Screen Exam Complete: Yes Emergency Medical Condition: Yes Medical Record Reviewed: Yes Interpretation(s) Laboratory Tests Test 07/17/17 10:00 07/17/17 10:20 Urine Color YELLOW Urine Turbidity CLEAR Urine pH 6.5 Urine Specific [place] 1.008 Urine Protein NEG mg/dL Urine Glucose (UA) NEG mg/dL Urine Ketones NEG mg/dL Urine Occult Blood NEG Urine Nitrite NEG Urine Bilirubin NEG Urine Urobilinogen LESS THAN 2.0 MG/DL Urine Leukocyte Esterase TRACE Urine RBC LESS THAN 1 /hpf Urine WBC 1 /hpf Urine Squamous Epithelial Cells <1 /hpf Urine Mucus FEW /lpf Microscopic Urinalysis Comment CULT NOT INDICATED White Blood Count 3.6 TH/MM3 Red Blood Count 5.11 MIL/MM3 Hemoglobin 11.8 GM/DL Hematocrit 37.5 % Mean Corpuscular Volume 73.3 FL Mean Corpuscular Hemoglobin 23.1 PG Mean Corpuscular Hemoglobin Concent 31.5 % Red Cell Distribution Width 18.2 % Platelet Count 277 TH/MM3 Mean Platelet Volume 6.9 FL Neutrophils (%) (Auto) 64.9 % Lymphocytes (%) (Auto) 25.8 % Monocytes (%) (Auto) 7.2 % Eosinophils (%) (Auto) 1.7 % Basophils (%) (Auto) 0.4 % Neutrophils # (Auto) 2.4 TH/MM3 Lymphocytes # (Auto) 0.9 TH/MM3 Monocytes # (Auto) 0.3 TH/MM3 Eosinophils # (Auto) 0.1 TH/MM3 Basophils # (Auto) 0.0 TH/MM3 CBC Comment DIFF FINAL Differential Comment Blood Urea Nitrogen 6 MG/DL Creatinine 0.87 MG/DL Random Glucose 78 MG/DL Total Protein 7.8 GM/DL Albumin 4.1 GM/DL Calcium Level 8.1 MG/DL Alkaline Phosphatase 65 U/L Aspartate Amino Transf (AST/SGOT) 45 U/L Alanine Aminotransferase (ALT/SGPT) 32 U/L Total Bilirubin 0.2 MG/DL Sodium Level 143 MEQ/L Potassium Level 3.7 MEQ/L Chloride Level 110 MEQ/L Carbon Dioxide Level 26.5 MEQ/L Anion Gap 7 MEQ/L Estimat Glomerular Filtration Rate 97 ML/MIN Lipase 238 U/L CT abdomen and pelvis reveals previous surgeries including gastric bypass. No obstruction or stone. Differential Diagnosis Differential diagnosis includes nephrolithiasis, hydronephrosis, pyelonephritis , lower lobe pneumonia, shingles, pancreatitis, retained biliary stone, diverticulitis. Narrative Course IV was established, labs are drawn and sent, and the patient was placed on cardiac telemetry monitoring and continuous pulse oximetry monitoring. The patient was administered morphine, Zofran, Pepcid, and IV fluids. UA was sent to lab. Noncontrast CT of the abdomen and pelvis was performed. Laboratory evaluation reveals mild leukopenia, mild anemia, otherwise unremarkable. LFTs and lipase are unremarkable. The patient was administered a second dose of morphine. CT the abdomen and pelvis reveals previous gastric bypass, no evidence of stone or obstruction. 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 He will be placed on pain medication, nausea medication and is advised to follow-up with his GI. Diagnosis Primary Impression: Abdominal pain Qualified Codes: R10.10 - Upper abdominal pain, unspecified Patient Instructions: General Instructions Additional Instructions: Work excuse for today. [place] and Zofran as needed. Follow-up with your aircraft ordnance systems mechanic. Please provide the patient a copy of his CT results and lab results at discharge. Med/Other Pt SpecificInfo: Prescription(s) given Scripts Ondansetron Odt (Zofran Odt) 4 Mg Tab 4 MG SL Q6HR Y for Nausea/Vomiting, #10 TAB 0 Refills Prov: Godwin Oviedo MD 07/17/17 Hydrocodone-Acetaminophen ([place]) 5 Mg-325 Mg Tab 1 TAB PO Q6H Y for PAIN, #12 TAB 0 Refills Prov: Godwin Oviedo MD 07/17/17 Disposition: 01 DISCHARGE HOME Condition: Stable Godwin Oviedo MD Jul 17, 2017 10:01
--- NOTE | 2017-07-17 10:24 | RADRPT ---
EXAM DATE/TIME: 07/17/2017 10:10 [facility] COMPARISON: CT ABDOMEN & PELVIS W/O CONTRAST, February 15, 2017, 8:15. INDICATIONS : Right flank pain ORAL CONTRAST: No oral contrast ingested. RADIATION DOSE: 7.92 CTDIvol (mGy) MEDICAL HISTORY : Cardiovascular disease. Renal calculi. Pancreatitis. SURGICAL HISTORY : Gastric bypass. ENCOUNTER: Initial ACUITY: 1 day PAIN SCALE: 8/10 LOCATION: Right flank TECHNIQUE: Volumetric scanning of the abdomen and pelvis was performed. Using automated exposure control and ad justment of the mA and/or kV according to patient size, radiation dose was kept as low as reasonably achievable to obtain optimal diagnostic quality images. DICOM format image data is available electro nically for review and comparison. FINDINGS: The lung base is are clear. The liver and spleen are unremarkable History of gastric bypass with surgical clips in the abdomen The pancreas and adrenal glands appear normal Right kidney: There is no stone or obstruction Left kidney: There is no stone or obstruction There is no ascites or adenopathy In the pelvis scattered diverticuli are noted without inflammatory changes. Bladder prostate is norm al vesicles unremarkable Review of bone windows reveals transpedicular fixation L4-S1 with associated moderate artifact SI joints are normal Mild degenerative changes about both hips. CONCLUSION: History of previous gastric bypass Negative for renal stone or obstruction. Mayo Sofia MD FACR on July 17, 2017 at 10:19 Board Certified Radiologist. This report was verified electronically.
[2017-07-17 10:33] VITALS: O2SAT 100
[2017-07-17 10:40] LABS: AUTOMATED NEUTROPHIL # 2.4 TH/MM3 (1.8-7.7); BASOPHIL % 0.4 % (0.0-2.0); EOSINOPHIL # 0.1 TH/MM3 (0-0.4); EOSINOPHIL % 1.7 % (0.0-4.0); HEMATOCRIT 37.5 % (39.0-51.0); HEMOGLOBIN 11.8 GM/DL (13.0-17.0); LYMPH % 25.8 % (9.0-44.0); LYMPHOCYTE # 0.9 TH/MM3 (1.0-4.8); MEAN CELL VOLUME 73.3 FL (80.0-100.0); MEAN CORPUSCULAR HEMOGLOBIN 23.1 PG (27.0-34.0); MEAN CORPUSCULAR HGB CONC 31.5 % (32.0-36.0); MEAN PLATELET VOLUME 6.9 FL (7.0-11.0); MONO % 7.2 % (0.0-8.0); MONOCYTE # 0.3 TH/MM3 (0-0.9); NEUT % 64.9 % (16.0-70.0); PLATELET COUNT 277 TH/MM3 (150-450); RED BLOOD COUNT 5.11 MIL/MM3 (4.50-5.90); RED CELL DISTRIBUTION WIDTH 18.2 % (11.6-17.2); WHITE BLOOD COUNT 3.6 TH/MM3 (4.0-11.0)
[2017-07-17 10:49] LABS: BILIRUBIN, URINE NEG (NEG); BLOOD, URINE NEG (NEG); GLUCOSE,URINE NEG (NEG); KETONE, URINE NEG (NEG); MUCUS URINE FEW /lpf (OCC); NITRITE,URINE NEG (NEG); PH, URINE 6.5 (5.0-8.5); SQUAMOUS EPITHELIAL CELL URINE <1 /hpf (0-5); URINE COLOR YELLOW (YELLW/STRAW); URINE LEUKOCYTE ESTERASE TRACE (NEG)
[2017-07-17 11:00] LABS: ALKALINE PHOSPHATASE 65 U/L (45-117); TOTAL BILIRUBIN ADULT 0.2 MG/DL (0.2-1.0); TOTAL PROTEIN 7.8 GM/DL (6.4-8.2)
[2017-07-17 11:01] LABS: ALBUMIN 4.1 GM/DL (3.4-5.0); ALT (GPT) 32 U/L (12-78); AST (GOT) 45 U/L (15-37); BICARBONATE 26.5 MEQ/L (21.0-32.0); BLOOD UREA NITROGEN 6 MG/DL (7-18); CALCIUM 8.1 MG/DL (8.5-10.1); CHLORIDE 110 MEQ/L (98-107); CREATININE 0.87 MG/DL (0.60-1.30); GLOMERULAR FILTRATION RATE 97 ML/MIN (>89); GLUCOSE,RANDOM 78 MG/DL (74-106); SODIUM (NA) 143 MEQ/L (136-145)
[2017-07-17 11:17] VITALS: RESP 18
[2017-07-17] MEDS ORDERED: NORC5TAB PO (11:48)
[2017-07-17] MEDS ORDERED: ZOFR4TAB3 SL (11:48)
[2017-07-17 12:17] VITALS: BP 117/68
== END 2017-07-17 12:18 | disposition home or self-care (01) ==
LOC: NEPD 09:02
DX: R10.10 Upper abdominal pain, unspecified (principal); F32.9 Major depressive disorder, single episode, unspecified; F17.210 Nicotine dependence, cigarettes, uncomplicated; Z98.84 Bariatric surgery status; Z88.6 Allergy status to analgesic agent; Z88.8 Allergy status to other drugs, medicaments and biological substances
CPT/HCPCS: 74176; 80053; 81001; 83690; 85025; 96361; 96374; 96375; 96376; 99284; J2270; J2405; J7030

== ENCOUNTER 2017-08-08 02:29 | Emergency (ER) | payer SELFPAY ==
[~2017-08-08] VITALS: Ht 198.1 cm; Wt 91.0 kg
[~2017-08-08 02:29] MED LIST changes: +NORC5TAB PO; +ZOFR4TAB3 SL
[2017-08-08 03:23] VITALS: BP 144/67; PULSE 75; RESP 18; TEMP 98.4; O2SAT 100
--- NOTE | 2017-08-08 04:25 | PD ---
HPI Chief Complaint: Injury Time Seen by Provider: 04:17 Travel History International Travel<30 days: No Contact w/Intl Traveler<30days: No Traveled to known affect area: No History of Present Illness HPI 42-year-old white male presents emergency department complains of back pain after lifting a TV on Monday. He states that he had felt something pop. Since then he has had pain moving his arms or taking a deep breath. Symptoms are mild to moderate. Worse at raising his arms over his head or lifting. He states that he has continued to go to work but he has pain. He denies any nausea vomiting. No shortness of breath or wheezing. No abdominal pain. No focal numbness or tingling. History Past Medical Histgory Narrative Medical Obesity with gastric bypass Tetanus Vaccination: < 5 Years Hx Cancer: No Hx Chemotherapy: No Past Surgical History Narrative Surgical Gastric bypass Social History Alcohol Use: Yes (once a week) Tobacco Use: Yes (1 PPD) Allergies-Medications (Allergen,Severity, Reaction): Coded Allergies: diclofenac (Verified Adverse Reaction, Severe, GASTRIC ULCERS, 08/08/17) etodolac (Verified Adverse Reaction, Severe, GASTRIC ULCERS, 08/08/17) flurbiprofen (Verified Adverse Reaction, Severe, GASTRIC ULCERS, 08/08/17) ibuprofen (Verified Adverse Reaction, Severe, GASTRIC ULCERS, 08/08/17) indomethacin (Verified Adverse Reaction, Severe, GASTRIC ULCERS, 08/08/17) ketoprofen (Verified Adverse Reaction, Severe, GASTRIC ULCERS, 08/08/17) nalbuphine (Verified Adverse Reaction, Severe, ITCHING, 08/08/17) naproxen (Verified Adverse Reaction, Severe, GASTRIC ULCERS, 08/08/17) oxaprozin (Verified Adverse Reaction, Severe, GASTRIC ULCERS, 08/08/17) *MDRO Multi-Drug Resistant Organism (Verified Adverse Reaction, Unknown, ) 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; (shoulder) - 01/02/16,01/27/16 & 03/04/16 Reported Meds & Prescriptions Reported Meds & Active Scripts Active Zofran Odt (Ondansetron Odt) 4 Mg Tab 4 Mg SL Q6HR PRN [place] (Hydrocodone-Acetaminophen) 5 Mg-325 Mg Tab 1 Tab PO Q6H PRN Restoril (Temazepam) 7.5 Mg Cap 7.5 Mg PO HS PRN Carafate Liq (Sucralfate) 1 Gm/10 Ml Susp 1 Gm PO QID 14 Days on empty stomach Pantoprazole (Pantoprazole Sodium) 40 Mg Tab 40 Mg PO BID Reported Fiber (Calcium Polycarbophil) Unknown Strength Tab Unknown Dose PO PRN Iron (Ferrous Sulfate) Unknown Strength Cap Unknown Dose PO DAILY Hydrocodone-Acetaminophen 10-325 mg Tab 1 Tab PO Q6H PRN Review of Systems Except as stated in HPI: all other systems reviewed are Neg Physical Exam Narrative GENERAL: Well-developed, well-nourished in no acute distress. Nontoxic appearing. HEAD: Normocephalic, atraumatic. EYES: Pupils equal round and reactive. Extraocular motions intact. No scleral icterus. No injection or drainage. ENT: TMs clear without erythema. The external auditory canals clear. Nose: clear . Posterior pharynx is pink and moist. No tonsillar edema or exudate. Uvula midline. Airway patent. NECK: Trachea midline.Supple, nontender, moves head freely. No central bony tenderness or spasm. CARDIOVASCULAR: Regular rate and rhythm without murmurs, gallops, or rubs. RESPIRATORY: Clear to auscultation. Breath sounds equal bilaterally. No wheezes , rales, or rhonchi. GASTROINTESTINAL: Abdomen soft, non-tender, nondistended. No hepato-splenomegaly , or palpable masses. No guarding. EXTREMITIES: No clubbing, cyanosis, or edema. No joint tenderness, effusion, or edema noted. BACK: No central bony tenderness. Patient complains of left periscapular myofascial tenderness without deformity or crepitance. No flank tenderness. Data Data Last Documented VS Vital Signs Date Time Temp Pulse Resp B/P (MAP) Pulse Ox O2 Delivery O2 Flow Rate FiO2 08/08/17 03:23 98.4 75 18 144/67 (92) 100 MDM Medical Screen Exam Complete: Yes Emergency Medical Condition: No Differential Diagnosis MDM: High Differential diagnoses: Fracture, sprain, strain, HNP, nerve or vascular injury, spasm, Primary Impression: Encounter for medical screening examination Condition: Stable Sonny Rivas Aug 08, 2017 04:25
== END 2017-08-08 04:30 | disposition left against medical advice (07) ==
LOC: NEPD 02:29
DX: M54.9 Dorsalgia, unspecified (principal)
CPT/HCPCS: 99281

== ENCOUNTER 2017-09-21 16:14 | Emergency (ER) | payer SELFPAY ==
[~2017-09-21] VITALS: Ht 198.1 cm; Wt 92.5 kg
[2017-09-21 16:18] VITALS: BP 153/78; PULSE 62; RESP 16; TEMP 97.6; O2SAT 100
[2017-09-21] MEDS ORDERED: FERR325T18 PO (16:27)
--- NOTE | 2017-09-21 16:54 | PD ---
HPI Chief Complaint: Pain: Acute or Chronic Time Seen by Provider: 16:39 Travel History International Travel<30 days: No Contact w/Intl Traveler<30days: No Traveled to known affect area: No History of Present Illness HPI 42-year-old male here with right rib and abdominal pain 1 day. He reports while playing with his dog yesterday he tripped falling onto the arm rest of his couch injuring his right side. He has bruising to his right abdomen. He has pain localized to the right anterior lower ribs and abdomen worse with palpation of the area, deep inspiration, twisting of the torso. No alleviating factors. Symptom severity is moderate. Denies nausea/vomiting. No hematuria. PFSH Past Medical History Anemia: Yes Arthritis: Yes Anxiety: No Depression: Yes Cancer: No Cardiac Catheterization: No Cardiovascular Problems: Yes (Ablation 2009) High Cholesterol: No Chemotherapy: No Cerebrovascular Accident: No Diabetes: No Diminished Hearing: No Endocrine: No Gastrointestinal Disorders: Yes (GASTRIC BYPASS, HX ULCERS) Genitourinary: No Hepatitis: No Hiatal Hernia: No Heparin Induced Thrombocytopen: No Hypertension: No Immune Disorder: No Musculoskeletal: Yes (SHOULDER, ARTHRITIS, NECK AND BACK) Psychiatric: Yes Reproductive: No Respiratory: No Immunizations Current: Yes Pancreatitis: Yes Thyroid Disease: No Ulcer: Yes Tetanus Vaccination: < 5 Years Influenza Vaccination: Yes Past Surgical History Abdominal Surgery: Yes (Gastric bypass) AICD: No Body Medical Devices: HARDWARE IN NECK, LOWER AND RIGHT SHOULDER Cardiac Surgery: Yes (Ablation for SVT) Cholecystectomy: Yes Coronary Artery Bypass Graft: No Ear Surgery: No Endocrine Surgery: No Eye Surgery: No Genitourinary Surgery: No Gynecologic Surgery: No Joint Replacement: No Neurologic Surgery: No Oral Surgery: No Pacemaker: No Thoracic Surgery: No Tonsillectomy: Yes Other Surgery: Yes (gastric bypass) Social History Alcohol Use: Yes (once a week) Tobacco Use: Yes (1 week) Substance Use: No (pt denies) Allergies-Medications (Allergen,Severity, Reaction): Coded Allergies: diclofenac (Verified Adverse Reaction, Severe, GASTRIC ULCERS, 09/21/17) etodolac (Verified Adverse Reaction, Severe, GASTRIC ULCERS, 09/21/17) flurbiprofen (Verified Adverse Reaction, Severe, GASTRIC ULCERS, 09/21/17) ibuprofen (Verified Adverse Reaction, Severe, GASTRIC ULCERS, 09/21/17) indomethacin (Verified Adverse Reaction, Severe, GASTRIC ULCERS, 09/21/17) ketoprofen (Verified Adverse Reaction, Severe, GASTRIC ULCERS, 09/21/17) nalbuphine (Verified Adverse Reaction, Severe, ITCHING, 09/21/17) naproxen (Verified Adverse Reaction, Severe, GASTRIC ULCERS, 09/21/17) oxaprozin (Verified Adverse Reaction, Severe, GASTRIC ULCERS, 09/21/17) *MDRO Multi-Drug Resistant Organism (Verified Adverse Reaction, Unknown, ) 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; (shoulder) - 01/02/16,01/27/16 & 03/04/16 Reported Meds & Prescriptions Reported Meds & Active Scripts Active Carafate Liq (Sucralfate) 1 Gm/10 Ml Susp 1 Gm PO QID 14 Days on empty stomach Pantoprazole (Pantoprazole Sodium) 40 Mg Tab 40 Mg PO BID Reported Ferrous Sulfate 325 Mg (65 Mg Iron) Tablet 325 Mg PO DAILY Review of Systems Except as stated in HPI: all other systems reviewed are Neg General / Constitutional: No: Fever Eyes: No: Visual changes HENT: No: Headaches Cardiovascular: No: Chest Pain or Discomfort Respiratory: No: Shortness of Breath Gastrointestinal: Positive: Abdominal Pain Genitourinary: No: Dysuria Musculoskeletal: Positive: Pain (Right rib pain) Skin: No Rash Physical Exam Narrative GENERAL: Alert and well-appearing 42-year-old male. Patient holding his right side grimacing in pain when he moves SKIN: Warm and dry. Ecchymosis noted to the right lateral abdomen HEAD: Normocephalic. Atraumatic EYES: No scleral icterus. No injection or drainage. NECK: Supple, trachea midline. No JVD or lymphadenopathy. CARDIOVASCULAR: Regular rate and rhythm RESPIRATORY: Breath sounds equal bilaterally. No accessory muscle use. Even and equal chest rise. +TTP right anterior lower ribs. No palpable fracture. No crepitus. GASTROINTESTINAL: Abdomen soft, nondistended. +TTP RUQ, ecchymosis noted to right lateral abdomen MUSCULOSKELETAL: No cyanosis, or edema. BACK: Nontender without obvious deformity. No CVA tenderness. Data Data Last Documented VS Vital Signs Date Time Temp Pulse Resp B/P (MAP) Pulse Ox O2 Delivery O2 Flow Rate FiO2 09/21/17 16:18 97.6 62 16 153/78 (103) 100 Orders Orders Basic Metabolic Panel (Bmp) (09/21/17 16:44) Complete Blood Count With Diff (09/21/17 16:44) Ct Abd/Pel W Iv Contrast(Rout) (09/21/17 16:44) Iv Access Insert/Monitor (09/21/17 16:44) Chest, Single Ap (09/21/17 16:44) Iohexol 350 Inj (Omnipaque 350 Inj) (09/21/17 17:23) Potassium Chloride (Kcl) (09/21/17 18:15) Acetaminophen (Tylenol) (09/21/17 18:15) Labs Laboratory Tests Test 09/21/17 17:00 White Blood Count 6.4 TH/MM3 Red Blood Count 4.43 MIL/MM3 Hemoglobin 10.5 GM/DL Hematocrit 32.5 % Mean Corpuscular Volume 73.3 FL Mean Corpuscular Hemoglobin 23.8 PG Mean Corpuscular Hemoglobin Concent 32.5 % Red Cell Distribution Width 17.1 % Platelet Count 151 TH/MM3 Mean Platelet Volume 8.0 FL Neutrophils (%) (Auto) 70.4 % Lymphocytes (%) (Auto) 19.6 % Monocytes (%) (Auto) 4.7 % Eosinophils (%) (Auto) 1.0 % Basophils (%) (Auto) 4.3 % Neutrophils # (Auto) 4.4 TH/MM3 Lymphocytes # (Auto) 1.3 TH/MM3 Monocytes # (Auto) 0.3 TH/MM3 Eosinophils # (Auto) 0.1 TH/MM3 Basophils # (Auto) 0.3 TH/MM3 CBC Comment AUTO DIFF Differential Comment AUTO DIFF CONFIRMED Blood Urea Nitrogen 7 MG/DL Creatinine 0.89 MG/DL Random Glucose 94 MG/DL Calcium Level 8.8 MG/DL Sodium Level 140 MEQ/L Potassium Level 3.3 MEQ/L Chloride Level 107 MEQ/L Carbon Dioxide Level 26.7 MEQ/L Anion Gap 6 MEQ/L Estimat Glomerular Filtration Rate 94 ML/MIN [facility] Medical Decision Making Medical Screen Exam Complete: Yes Emergency Medical Condition: Yes Interpretation(s) CBC: Hemoglobin 10.5, hematocrit 32.5- patient has known history of anemia and is asymptomatic. BMP: Unremarkable with the exception of potassium 3.3, replaced orally Chest x-ray: Negative for rib fracture or pneumothorax CT abdomen pelvis: Negative trauma scan Differential Diagnosis Rib fracture, pneumothorax, intra-abdominal trauma Narrative Course 42-year-old male with right rib and upper abdominal pain after blunt trauma to the abdomen yesterday. Chest x-ray and CT abdomen and pelvis are negative for acute injury. Patient's hemoglobin was 10.5 today down slightly from and July. He has known history of anemia and currently asymptomatic. 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 His potassium was slightly low at 3.3. It was replaced orally in the ED. Patient instructed to continue Tylenol as needed for pain. Return precautions were discussed. Diagnosis Primary Impression: Rib contusion Qualified Codes: S20.211A - Contusion of right front wall of thorax, initial encounter Additional Impression: Abdominal contusion Qualified Codes: S30.1XXA - Contusion of abdominal wall, initial encounter Referrals: Primary Care Physician Additional Instructions: Tylenol as needed for pain. Follow-up with primary doctor and b2b sales manager. Return if he develop new or worsening symptoms Disposition: 01 DISCHARGE HOME Condition: Stable Vanesa Okeefe Sep 21, 2017 16:54
[2017-09-21 17:13] LABS: AUTOMATED NEUTROPHIL # 4.4 TH/MM3 (1.8-7.7); BASOPHIL # 0.3 TH/MM3 (0-0.2); BASOPHIL % 4.3 % (0.0-2.0); EOSINOPHIL # 0.1 TH/MM3 (0-0.4); HEMATOCRIT 32.5 % (39.0-51.0); HEMOGLOBIN 10.5 GM/DL (13.0-17.0); LYMPH % 19.6 % (9.0-44.0); LYMPHOCYTE # 1.3 TH/MM3 (1.0-4.8); MEAN CELL VOLUME 73.3 FL (80.0-100.0); MEAN CORPUSCULAR HEMOGLOBIN 23.8 PG (27.0-34.0); MEAN CORPUSCULAR HGB CONC 32.5 % (32.0-36.0); MONO % 4.7 % (0.0-8.0); MONOCYTE # 0.3 TH/MM3 (0-0.9); NEUT % 70.4 % (16.0-70.0); PLATELET COUNT 151 TH/MM3 (150-450); RED BLOOD COUNT 4.43 MIL/MM3 (4.50-5.90); RED CELL DISTRIBUTION WIDTH 17.1 % (11.6-17.2); WHITE BLOOD COUNT 6.4 TH/MM3 (4.0-11.0)
[2017-09-21] MEDS ORDERED: IOHEXOL 350 MG/ML 10 ML VIAL (for RAD DIAG) IVCONTRAST ONE (17:23)
[2017-09-21 17:28] LABS: BICARBONATE 26.7 MEQ/L (21.0-32.0); CALCIUM 8.8 MG/DL (8.5-10.1)
--- NOTE | 2017-09-21 17:30 | RADRPT ---
EXAM DATE/TIME: 09/21/2017 17:07 [facility] COMPARISON: CHEST SINGLE AP, October 24, 2016, 12:43. INDICATIONS : Hit in the right ribs by his pitbull. MEDICAL HISTORY : Cholecystectomy. Gastric bypass. Fusion, lumbar. SURGICAL HISTORY : Cholecystectomy. Gastric bypass. Fusion, lumbar. ENCOUNTER: Initial ACUITY: 1 day PAIN SCORE: 6/10 LOCATION: Right chest FINDINGS: A single view of the chest demonstrates the lungs to be symmetrically aerated without evidence of mas s, infiltrate or effusion. The cardiomediastinal contours are unremarkable. Osseous structures are intact. CONCLUSION: No acute disease. Castillo Cameron MD on September 21, 2017 at 17:27 Board Certified Radiologist. This report was verified electronically.
[2017-09-21 17:32] LABS: CREATININE 0.89 MG/DL (0.60-1.30)
--- NOTE | 2017-09-21 17:37 | RADRPT ---
EXAM DATE/TIME: 09/21/2017 17:12 [facility] COMPARISON: CT ABDOMEN & PELVIS W CONTRAST, October 24, 2016, 14:21. INDICATIONS : Right upper quadrant pain. Blunt trauma. IV CONTRAST: 90 cc Omnipaque 350 (iohexol) IV ORAL CONTRAST: No oral contrast ingested. RADIATION DOSE: 12.11 CTDIvol (mGy) MEDICAL HISTORY : Renal calculi. SURGICAL HISTORY : Gastric bypass. Cholecystectomy.Fusion, lumbar.Cardiac ablation. ENCOUNTER: Initial ACUITY: 1 day PAIN SCALE: 8/10 LOCATION: Right upper quadrant TECHNIQUE: Volumetric scanning of the abdomen and pelvis was performed. Using automated exposure control and ad justment of the mA and/or kV according to patient size, radiation dose was kept as low as reasonably achievable to obtain optimal diagnostic quality images. DICOM format image data is available electro nically for review and comparison. FINDINGS: LOWER LUNGS: The visualized lower lungs are clear. LIVER: Homogeneous density without lesion. There is no dilation of the biliary tree. Post cholecystectomy c lips are noted. SPLEEN: Normal size without lesion. PANCREAS: Within normal limits. KIDNEYS: Normal in size and shape. There is no mass, stone or hydronephrosis. ADRENAL GLANDS: Within normal limits. VASCULAR: There is no aortic aneurysm. BOWEL/MESENTERY: Postsurgical suture and clips are again noted along the stomach. The small bowel, and colon demonstra te no acute abnormality. There is no free intraperitoneal air or fluid. ABDOMINAL WALL: Within normal limits. RETROPERITONEUM: There is no lymphadenopathy. BLADDER: No wall thickening or mass. REPRODUCTIVE: Within normal limits. INGUINAL: There is no lymphadenopathy or hernia. MUSCULOSKELETAL: 3 level fusion is identified at the lumbosacral junction. There is a posterior fusion device consisti ng of coronal tank with transpedicular fixation screws. CONCLUSION: No acute disease. Status post cholecystectomy, gastric surgery and lumbosacral fusion.. Castillo Cameron MD on September 21, 2017 at 17:31 Board Certified Radiologist. This report was verified electronically.
[2017-09-21] MEDS ORDERED: POTASSIUM CHLORIDE 20 MEQ CONTROLLED RELEASE TAB PO ONE (18:15)
[2017-09-21] MEDS ORDERED: ACETAMINOPHEN 500 MG CPLT PO ONE (18:15)
== END 2017-09-21 18:18 | disposition home or self-care (01) ==
LOC: PHEFT 16:14
DX: S20.219A Contusion of unspecified front wall of thorax, initial encounter (principal); S30.1XXA Contusion of abdominal wall, initial encounter; W01.190A Fall on same level from slipping, tripping and stumbling with subsequent striking against furniture, initial encounter; F32.9 Major depressive disorder, single episode, unspecified; M19.90 Unspecified osteoarthritis, unspecified site; Z98.84 Bariatric surgery status; Z72.0 Tobacco use
CPT/HCPCS: 71045; 74177; 80048; 85025; 99285; Q9967

== ENCOUNTER 2017-10-19 18:29 | Emergency (ER) | END 2017-10-19 21:12 | disposition left against medical advice (07) | DX: M25.529 Pain in unspecified elbow (principal) ==

== ENCOUNTER 2017-11-22 14:20 | Emergency (ER) | payer SELFPAY ==
[~2017-11-22] VITALS: Ht 198.1 cm; Wt 95.0 kg
[~2017-11-22 14:20] MED LIST changes: -FERR325C PO; +FERR325T18 PO; -FIBE625T10 PO; -HYDR-3583 PO; -NORC5TAB PO; -TEMA7.5C9 PO; -ZOFR4TAB3 SL
[2017-11-22 14:27] VITALS: BP 145/78; PULSE 70; RESP 16; TEMP 98.3; O2SAT 100
[2017-11-22] MEDS ORDERED: SODIUM CHLORIDE 0.9% FLUSH 10 ML FLUSH IVF PRN (15:45)
[2017-11-22] MEDS ORDERED: LEVOFLOXACIN 750 MG TAB PO ONE (15:45)
[2017-11-22] MEDS ORDERED: TAMSULOSIN HCL 0.4 MG CAP PO ONE (15:45)
[2017-11-22] MEDS ORDERED: ONDANSETRON ODT 4 MG TAB PO/SL ONE (15:45)
--- NOTE | 2017-11-22 15:49 | PD ---
HPI Chief Complaint: Abdominal Pain Time Seen by Provider: 15:15 Travel History International Travel<30 days: No Contact w/Intl Traveler<30days: No Traveled to known affect area: No History of Present Illness HPI 42-year-old male presents emergency department with 3 day history of lower central abdominal pain and cramping, and difficulty initiating his urinary stream for the past 3 days. Patient states pain is now radiating to the back bilaterally. Patient denies fever but has had nausea. He states history of enlarged prostate. Patient denies urinary dysuria, or discharge. He states no recent sexual activity for the past 2 weeks. He states one episode of diarrhea 3 days ago but none since. Pain is currently 8 out of 10. He is allergic to all NSAIDs. He has a history of MRSA. PFSH Past Medical History Anemia: Yes Arthritis: Yes Anxiety: Yes Depression: Yes Heart Rhythm Problems: Yes (SVT ablated) Cancer: No Cardiac Catheterization: No Cardiovascular Problems: Yes High Cholesterol: No Chemotherapy: No Cerebrovascular Accident: No Diabetes: No Diminished Hearing: No Endocrine: No Gastrointestinal Disorders: Yes (GASTRIC BYPASS, HX ULCERS) Genitourinary: No Hepatitis: No Hiatal Hernia: No Heparin Induced Thrombocytopen: No Hypertension: No Immune Disorder: No Musculoskeletal: Yes (SHOULDER, ARTHRITIS, NECK AND BACK) Neurologic: Yes (HEAD INJURY, BUT CT SCAN NEG PER PT) Psychiatric: Yes Reproductive: No Respiratory: No Immunizations Current: Yes Pancreatitis: Yes Thyroid Disease: No Ulcer: Yes Past Surgical History Abdominal Surgery: Yes (Gastric bypass) AICD: No Body Medical Devices: HARDWARE IN NECK, LOWER BAck Cardiac Surgery: Yes (Ablation for SVT) Cholecystectomy: Yes Coronary Artery Bypass Graft: No Ear Surgery: No Endocrine Surgery: No Eye Surgery: No Genitourinary Surgery: No Gynecologic Surgery: No Joint Replacement: No Neurologic Surgery: No Oral Surgery: No Pacemaker: No Thoracic Surgery: No Tonsillectomy: Yes Other Surgery: Yes (gastric bypass) Social History Alcohol Use: Yes (weekly) Tobacco Use: Yes (1pack/week) Substance Use: No Allergies-Medications (Allergen,Severity, Reaction): Coded Allergies: diclofenac (Verified Adverse Reaction, Severe, GASTRIC ULCERS, 11/22/17) etodolac (Verified Adverse Reaction, Severe, GASTRIC ULCERS, 11/22/17) flurbiprofen (Verified Adverse Reaction, Severe, GASTRIC ULCERS, 11/22/17) ibuprofen (Verified Adverse Reaction, Severe, GASTRIC ULCERS, 11/22/17) indomethacin (Verified Adverse Reaction, Severe, GASTRIC ULCERS, 11/22/17) ketoprofen (Verified Adverse Reaction, Severe, GASTRIC ULCERS, 11/22/17) nalbuphine (Verified Adverse Reaction, Severe, ITCHING, 11/22/17) naproxen (Verified Adverse Reaction, Severe, GASTRIC ULCERS, 11/22/17) oxaprozin (Verified Adverse Reaction, Severe, GASTRIC ULCERS, 11/22/17) *MDRO Multi-Drug Resistant Organism (Verified Adverse Reaction, Unknown, ) 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; (shoulder) - 01/02/16,01/27/16 & 03/04/16 Reported Meds & Prescriptions Reported Meds & Active Scripts Active Carafate Liq (Sucralfate) 1 Gm/10 Ml Susp 1 Gm PO QID 14 Days on empty stomach Pantoprazole (Pantoprazole Sodium) 40 Mg Tab 40 Mg PO BID Reported Ferrous Sulfate 325 Mg (65 Mg Iron) Tablet 325 Mg PO DAILY Review of Systems Except as stated in HPI: all other systems reviewed are Neg General / Constitutional: No: Fever, Chills Eyes: No: Visual changes HENT: No: Headaches Cardiovascular: No: Chest Pain or Discomfort Respiratory: No: Shortness of Breath Gastrointestinal: Positive: Nausea, No: Vomiting, Diarrhea, Abdominal Pain Genitourinary: Positive: Urgency, Frequency, Hesitancy, Dribbling, Pelvic Pain , Flank Pain, No: Dysuria, Nocturia, Hematuria, Decreased Urinary Output, Incontinence, Dyspareunia, Discharge Musculoskeletal: No: Pain Skin: No Rash Neurologic: No: Weakness Psychiatric: No: Depression Endocrine: No: Polydipsia Hematologic/Lymphatic: No: Easy Bruising Physical Exam Narrative GENERAL: Patient appears in mild to moderate distress. SKIN: Warm and dry. Normal color. Normal turgor. No rash. HEAD: Atraumatic. Normocephalic. EYES: Pupils equal and round. No scleral icterus. No injection or drainage. ENT: No nasal bleeding or discharge. Mucous membranes pink and moist. Pharynx is clear. Airways patent. NECK: Trachea midline. Supple and nontender per CARDIOVASCULAR: Regular rate and rhythm. RESPIRATORY: No accessory muscle use. Clear to auscultation. Breath sounds equal bilaterally. GASTROINTESTINAL: Abdomen soft, mild to moderate suprapubic tenderness, nondistended. Mild bilateral CVA tenderness with percussion. Hepatic and splenic margins not palpable. MUSCULOSKELETAL: Extremities without clubbing, cyanosis, or edema. No obvious deformities. NEUROLOGICAL: Awake and alert. No obvious cranial nerve deficits. Motor grossly within normal limits. Five out of 5 muscle strength in the arms and legs. Normal speech. PSYCHIATRIC: Appropriate mood and affect; insight and judgment normal. Data Data Last Documented VS Vital Signs Date Time Temp Pulse Resp B/P (MAP) Pulse Ox O2 Delivery O2 Flow Rate FiO2 11/22/17 14:27 98.3 70 16 145/78 (100) 100 Orders Orders Complete Blood Count With Diff (11/22/17 15:34) Comprehensive Metabolic Panel (11/22/17 15:34) Urinalysis - C+S If Indicated (11/22/17 15:34) Iv Access Insert/Monitor (11/22/17 15:34) Levofloxacin (Levaquin) (11/22/17 15:45) Ondansetron Odt (Zofran Odt) (11/22/17 15:45) Sodium Chloride 0.9% Flush (Ns Flush) (11/22/17 15:45) Tamsulosin (Flomax) (11/22/17 15:45) Ct Abd/Pel W/O Iv Contrast (11/22/17 15:49) Acetaminophen (Tylenol) (11/22/17 16:30) Lipase (11/22/17 16:55) Ketorolac Inj (Toradol Inj) (11/22/17 18:30) Labs Laboratory Tests Test 11/22/17 15:45 White Blood Count 4.2 TH/MM3 Red Blood Count 4.86 MIL/MM3 Hemoglobin 11.0 GM/DL Hematocrit 35.3 % Mean Corpuscular Volume 72.7 FL Mean Corpuscular Hemoglobin 22.7 PG Mean Corpuscular Hemoglobin Concent 31.2 % Red Cell Distribution Width 17.6 % Platelet Count 263 TH/MM3 Mean Platelet Volume 6.6 FL Neutrophils (%) (Auto) 66.0 % Lymphocytes (%) (Auto) 23.3 % Monocytes (%) (Auto) 9.2 % Eosinophils (%) (Auto) 1.0 % Basophils (%) (Auto) 0.5 % Neutrophils # (Auto) 2.7 TH/MM3 Lymphocytes # (Auto) 1.0 TH/MM3 Monocytes # (Auto) 0.4 TH/MM3 Eosinophils # (Auto) 0.0 TH/MM3 Basophils # (Auto) 0.0 TH/MM3 CBC Comment DIFF FINAL Differential Comment Urine Color YELLOW Urine Turbidity CLEAR Urine pH 7.0 Urine Specific [place] 1.006 Urine Protein NEG mg/dL Urine Glucose (UA) NEG mg/dL Urine Ketones NEG mg/dL Urine Occult Blood SMALL Urine Nitrite NEG Urine Bilirubin NEG Urine Urobilinogen LESS THAN 2 mg/dL Urine Leukocyte Esterase NEG Urine RBC 1 /hpf Urine WBC 1 /hpf Urine Squamous Epithelial Cells <1 /hpf Microscopic Urinalysis Comment CULT NOT INDICATED Blood Urea Nitrogen 10 MG/DL Creatinine 0.96 MG/DL Random Glucose 90 MG/DL Total Protein 7.3 GM/DL Albumin 4.1 GM/DL Calcium Level 8.5 MG/DL Alkaline Phosphatase 59 U/L Aspartate Amino Transf (AST/SGOT) 32 U/L Alanine Aminotransferase (ALT/SGPT) 21 U/L Total Bilirubin 0.9 MG/DL Sodium Level 142 MEQ/L Potassium Level 3.4 MEQ/L Chloride Level 107 MEQ/L Carbon Dioxide Level 22.7 MEQ/L Anion Gap 12 MEQ/L Estimat Glomerular Filtration Rate 86 ML/MIN Lipase 152 U/L MDM Medical Decision Making Medical Screen Exam Complete: Yes Emergency Medical Condition: Yes Medical Record Reviewed: Yes Differential Diagnosis Urinary retention. Prostatitis. Renal stone. Obstruction Narrative Course Patient appears medically stable time exam per CBC, CMP, and urinalysis is ordered IV access is obtained the patient is given 1000 mL of normal saline bolus per Patient is given Zofran 4 mg p.o., Flomax 0.4 mg p.o., and [address] of the abdomen and pelvis without IV contrast is ordered. CBC is unremarkable except for microcytic anemia with a hemoglobin of 11, and hematocrit 35.3. Platelets are normal at 263. No significant leukocytosis is noted. Urinalysis is unremarkable except for potassium of 3.4, GFR is 86, BUN is 10 and creatinine is 0.96. Urinalysis is negative except for a small amount of occult blood. Specific gravity is 1.006 CT showed: Questionable mild induration of the fat seen around the pancreatic head and uncinate process raising the possibility of pancreatitis. Lipase was added which was 152. Patient is given Toradol 30 mg IV. Patient has no true allergy to NSAIDs, but has had gastric bypass Patient will be continued on Levaquin 500 mg daily for the next 10 days. Patient also continued on Flomax 0.4 mg daily for the next 10 days per Patient given ibuprofen 600 mg 3 times daily as needed #30. Patient to push fluids and rest and follow-up if symptoms worsen, especially inability to urinate Patient should follow-up with local primary care physician. Diagnosis Primary Impression: Prostatitis, acute Additional Impression: Urinary retention Referrals: [facility] Patient Instructions: General Instructions, Prostatitis (ED) Additional Instructions: CBC is unremarkable except for microcytic anemia with a hemoglobin of 11, and hematocrit 35.3. Platelets are normal at 263. No significant leukocytosis is noted. Urinalysis is unremarkable except for potassium of 3.4, GFR is 86, BUN is 10 and creatinine is 0.96. Urinalysis is negative except for a small amount of occult blood. Specific gravity is 1.006 CT showed: Questionable mild induration of the fat seen around the pancreatic head and uncinate process raising the possibility of pancreatitis. Lipase was added which was 152. Patient is given Toradol 30 mg IV. Patient has no true allergy to NSAIDs, but has had gastric bypass Patient will be continued on Levaquin 500 mg daily for the next 10 days. Patient also continued on Flomax 0.4 mg daily for the next 10 days per Patient given ibuprofen 600 mg 3 times daily as needed #30. Patient to push fluids and rest and follow-up if symptoms worsen, especially inability to urinate Patient should follow-up with local primary care physician. Med/Other Pt SpecificInfo: Prescription(s) given Disposition: 01 DISCHARGE HOME Condition: Stable Jonathan Ruiz Nov 22, 2017 15:49
[2017-11-22 15:59] LABS: AUTOMATED NEUTROPHIL # 2.7 TH/MM3 (1.8-7.7); BASOPHIL % 0.5 % (0.0-2.0); HEMATOCRIT 35.3 % (39.0-51.0); LYMPH % 23.3 % (9.0-44.0); MEAN CELL VOLUME 72.7 FL (80.0-100.0); MEAN CORPUSCULAR HEMOGLOBIN 22.7 PG (27.0-34.0); MEAN CORPUSCULAR HGB CONC 31.2 % (32.0-36.0); MEAN PLATELET VOLUME 6.6 FL (7.0-11.0); MONO % 9.2 % (0.0-8.0); MONOCYTE # 0.4 TH/MM3 (0-0.9); PLATELET COUNT 263 TH/MM3 (150-450); RED BLOOD COUNT 4.86 MIL/MM3 (4.50-5.90); RED CELL DISTRIBUTION WIDTH 17.6 % (11.6-17.2); WHITE BLOOD COUNT 4.2 TH/MM3 (4.0-11.0)
[2017-11-22 16:13] LABS: BILIRUBIN, URINE NEG (NEG); BLOOD, URINE SMALL (NEG); GLUCOSE,URINE NEG (NEG); KETONE, URINE NEG (NEG); NITRITE,URINE NEG (NEG); SQUAMOUS EPITHELIAL CELL URINE <1 /hpf (0-5); URINE COLOR YELLOW (YELLW/STRAW); URINE LEUKOCYTE ESTERASE NEG (NEG)
[2017-11-22 16:20] LABS: ALBUMIN 4.1 GM/DL (3.4-5.0); ALT (GPT) 21 U/L (12-78); AST (GOT) 32 U/L (15-37); BICARBONATE 22.7 MEQ/L (21.0-32.0); BLOOD UREA NITROGEN 10 MG/DL (7-18); CALCIUM 8.5 MG/DL (8.5-10.1); CHLORIDE 107 MEQ/L (98-107); CREATININE 0.96 MG/DL (0.60-1.30); GLOMERULAR FILTRATION RATE 86 ML/MIN (>89); GLUCOSE,RANDOM 90 MG/DL (74-106); SODIUM (NA) 142 MEQ/L (136-145)
[2017-11-22 16:23] LABS: ALKALINE PHOSPHATASE 59 U/L (45-117); TOTAL BILIRUBIN ADULT 0.9 MG/DL (0.2-1.0); TOTAL PROTEIN 7.3 GM/DL (6.4-8.2)
[2017-11-22] MEDS ORDERED: ACETAMINOPHEN 500 MG CPLT PO ONE (16:30)
--- NOTE | 2017-11-22 16:54 | PD ---
Physical Exam Date Seen by Provider: Nov 22, 2017 Data Data Last Documented VS Vital Signs Date Time Temp Pulse Resp B/P (MAP) Pulse Ox O2 Delivery O2 Flow Rate FiO2 11/22/17 14:27 98.3 70 16 145/78 (100) 100 Orders Orders Complete Blood Count With Diff (11/22/17 15:34) Comprehensive Metabolic Panel (11/22/17 15:34) Urinalysis - C+S If Indicated (11/22/17 15:34) Iv Access Insert/Monitor (11/22/17 15:34) Levofloxacin (Levaquin) (11/22/17 15:45) Ondansetron Odt (Zofran Odt) (11/22/17 15:45) Sodium Chloride 0.9% Flush (Ns Flush) (11/22/17 15:45) Tamsulosin (Flomax) (11/22/17 15:45) Ct Abd/Pel W/O Iv Contrast (11/22/17 15:49) Acetaminophen (Tylenol) (11/22/17 16:30) Labs Laboratory Tests Test 11/22/17 15:45 White Blood Count 4.2 TH/MM3 Red Blood Count 4.86 MIL/MM3 Hemoglobin 11.0 GM/DL Hematocrit 35.3 % Mean Corpuscular Volume 72.7 FL Mean Corpuscular Hemoglobin 22.7 PG Mean Corpuscular Hemoglobin Concent 31.2 % Red Cell Distribution Width 17.6 % Platelet Count 263 TH/MM3 Mean Platelet Volume 6.6 FL Neutrophils (%) (Auto) 66.0 % Lymphocytes (%) (Auto) 23.3 % Monocytes (%) (Auto) 9.2 % Eosinophils (%) (Auto) 1.0 % Basophils (%) (Auto) 0.5 % Neutrophils # (Auto) 2.7 TH/MM3 Lymphocytes # (Auto) 1.0 TH/MM3 Monocytes # (Auto) 0.4 TH/MM3 Eosinophils # (Auto) 0.0 TH/MM3 Basophils # (Auto) 0.0 TH/MM3 CBC Comment DIFF FINAL Differential Comment Urine Color YELLOW Urine Turbidity CLEAR Urine pH 7.0 Urine Specific [place] 1.006 Urine Protein NEG mg/dL Urine Glucose (UA) NEG mg/dL Urine Ketones NEG mg/dL Urine Occult Blood SMALL Urine Nitrite NEG Urine Bilirubin NEG Urine Urobilinogen LESS THAN 2 mg/dL Urine Leukocyte Esterase NEG Urine RBC 1 /hpf Urine WBC 1 /hpf Urine Squamous Epithelial Cells <1 /hpf Microscopic Urinalysis Comment CULT NOT INDICATED Blood Urea Nitrogen 10 MG/DL Creatinine 0.96 MG/DL Random Glucose 90 MG/DL Total Protein 7.3 GM/DL Albumin 4.1 GM/DL Calcium Level 8.5 MG/DL Alkaline Phosphatase 59 U/L Aspartate Amino Transf (AST/SGOT) 32 U/L Alanine Aminotransferase (ALT/SGPT) 21 U/L Total Bilirubin 0.9 MG/DL Sodium Level 142 MEQ/L Potassium Level 3.4 MEQ/L Chloride Level 107 MEQ/L Carbon Dioxide Level 22.7 MEQ/L Anion Gap 12 MEQ/L Estimat Glomerular Filtration Rate 86 ML/MIN MDM Medical Record Reviewed: Yes Supervised Visit with PAULA: Yes Narrative Course I, Dr. Reyez, have reviewed the advance practice practitioner's documentation and am in agreement, met with the patient face to face, made the diagnosis, and the medical decision making was done by me. *My assessment and Findings: Patient is a 42-year-old male who presents the emergency room with complaints of abdominal pain which began on Monday. Patient reports associated nausea and vomiting with the symptoms. Patient reports that he has been having difficulties with urination, reports that pain is diffuse to his abdomen, reports diarrhea with his symptoms. CBC & BMP Diagram 11/22/17 15:45 Total Protein 7.3, Albumin 4.1, Calcium Level 8.5, Alkaline Phosphatase 59, Aspartate Amino Transf (AST/SGOT) 32, Alanine Aminotransferase (ALT/SGPT) 21, Total Bilirubin 0.[address] the abdomen and pelvis Condition: Stable Opal Reyez DO Nov 22, 2017 16:54
--- NOTE | 2017-11-22 16:54 | RADRPT ---
EXAM DATE: 11/22/2017 4:32 PM EDT AGE/SEX: 42 years / Male INDICATIONS: Abdominal pain, back pain, nausea. CLINICAL DATA: This is the patient's initial encounter. Patient reports that signs and symptoms have been present for 2 days and indicates a pain score of 8/10. MEDICAL/SURGICAL HISTORY: Cardiovascular disease. Pancreatitis. Renal calculi. Anemia, ulcer s. Gastric bypass. Lumbar surgery. RADIATION DOSE: 10.83 CTDI (mGy) [place] [facility] [place] CONTRAST[place] 07/17/2017. . TECHNIQUE: Multiple contiguous axial images were obtained through the abdomen. Images were obtained using multiple row detector helical technique. Using automated exposure control and adjustment of the mA and/or kV according to patient size, radiation dose was kept as low as reasonably achievable to o btain optimal diagnostic quality images. DICOM format image data is available electronically for rev iew and comparison. FINDINGS: Lower Lungs: The visualized lower lungs are clear. Liver: The liver has a homogeneous density without space-occupying lesion. There is no dilation of th e biliary tree. The patient is status post cholecystectomy. Spleen: Homogeneous density without enlargement. Pancreas: The pancreas itself appears grossly normal. There some questionable mild induration in the fat around the pancreatic head and uncinate processes. The fat around the pancreatic body and tail a ppears normal. Kidneys: Normal in size and shape. No evidence of mass or hydronephrosis. Adrenal Glands: Unremarkable. Aorta: The aorta and proximal iliac vessels are grossly unremarkable without aneurysmal dilation. Bowel/Mesentery: Bowel anastomosis sutures are seen around the stomach presumably from prior gastric bypass surgery. Abdominal Wall: Intact. Retroperitoneum: No evidence of adenopathy in the retrocrural, para-aortic, or deep pelvic regions. Bladder: Contours are smooth. Reproductive Organs: No abnormal masses seen. Inguinal: The inguinal region is unremarkable without evidence of adenopathy. Bony Structures: There are surgical hardware seen at the lower lumbar spine. CONCLUSION: Questionable mild induration of the fat seen around the pancreatic head and uncinate process raising the possibility of pancreatitis. Electronically signed by: Harry Morgan MD 11/22/2017 4:52 PM EDT
[2017-11-22] MEDS ORDERED: KETOROLAC TROMETHAMINE 30 MG/ML (IVP) VIAL IV PUSH ONE (18:30)
[2017-11-22] MEDS ORDERED: IBUP-232 PO (19:01)
[2017-11-22] MEDS ORDERED: TAMS5CAP PO (19:01)
[2017-11-22] MEDS ORDERED: LEVA500T33 PO (19:01)
== END 2017-11-22 19:13 | disposition home or self-care (01) ==
LOC: NEPD 14:20
DX: N41.9 Inflammatory disease of prostate, unspecified (principal); R33.8 Other retention of urine; D50.9 Iron deficiency anemia, unspecified; M19.90 Unspecified osteoarthritis, unspecified site; F41.9 Anxiety disorder, unspecified; F32.9 Major depressive disorder, single episode, unspecified; F17.200 Nicotine dependence, unspecified, uncomplicated; Z98.84 Bariatric surgery status
CPT/HCPCS: 74176; 80053; 81001; 83690; 85025; 96374; 99284; J1885